=== PATIENT | male | born 1940 | race Two or more races ===

== ENCOUNTER 2018-06-05 08:50 | Observation (INO) | payer MEDICARE ==
[2018-06-05] MEDS ORDERED: ASPIRIN 81 MG PO STA (09:11)
--- NOTE | 2018-06-05 09:15 | ED ---
General Adult HPI - General Chief complaint: Arrhythmia/Palpitations Stated complaint: AFIB Time Seen by Provider: 06/05/18 08:51 Source: patient, RN notes reviewed Mode of arrival: EMS Limitations: no limitations - History of Present Illness Initial comments: Patient is a pleasant 77-year-old male presenting to the emergency department for concerns for dysrhythmia. Patient was sent over from [facility]. Case was discussed with Dr. Aden. Patient states he is symptom-free and has no complaints. Patient denies any palpitations. No chest pain. No dyspnea. No fatigue. Patient was scheduled for a routine colonoscopy. No history of previous dysrhythmia. - Related Data Home Medications Medication Instructions Recorded Confirmed Aspirin 81 mg PO DAILY 06/05/18 06/05/18 Lisinopril-Hctz 20-12.5 mg 1 tab PO BID 06/05/18 06/05/18 [Zestoretic 20-12.5] Simvastatin [Zocor] 20 mg PO HS 06/05/18 06/05/18 Tamsulosin HCl [Flomax] 0.4 mg PO HS 06/05/18 06/05/18 amLODIPine [Norvasc] 5 mg PO DAILY 06/05/18 06/05/18 metFORMIN HCL 1,000 mg PO DAILY 06/05/18 06/05/18 Allergies Allergy/AdvReac Type Severity Reaction Status Date / Time No Known Allergies Allergy Verified 06/05/18 09:44 Review of Systems ROS Statement: Those systems with pertinent positive or pertinent negative responses have been documented in the HPI. ROS Other: All systems not noted in ROS Statement are negative. Constitutional: Denies: fever Eyes: Denies: eye pain ENT: Denies: ear pain Respiratory: Denies: cough Cardiovascular: Denies: chest pain, palpitations Endocrine: Denies: fatigue Gastrointestinal: Denies: abdominal pain Genitourinary: Denies: dysuria Musculoskeletal: Denies: back pain Skin: Denies: rash Neurological: Denies: weakness Past Medical History Past Medical History: Diabetes Mellitus, Hyperlipidemia, Hypertension, Prostate Disorder History of Any Multi-Drug Resistant Organisms: None Reported Past Surgical History: No Surgical Hx Reported Past Psychological History: No Psychological Hx Reported Smoking Status: Current every day smoker Past Alcohol Use History: Occasional Past Drug Use History: None Reported General Exam Limitations: no limitations General appearance: alert, in no apparent distress Head exam: Present: atraumatic Eye exam: Present: normal appearance Neck exam: Present: normal inspection Respiratory exam: Present: normal lung sounds bilaterally. Absent: chest wall tenderness Cardiovascular Exam: Present: irregular rhythm, normal heart sounds Expanded Peripheral pulses: 2+: Radial (R), Radial (L), Posterior Tibialis (R), Posterior Tibialis (L) GI/Abdominal exam: Present: soft. Absent: tenderness Extremities exam: Present: normal inspection. Absent: pedal edema, calf tenderness Neurological exam: Present: alert Psychiatric exam: Present: normal affect, normal mood Skin exam: Present: normal color Course Vital Signs 06/05/18 06/05/18 06/05/18 08:54 09:10 09:30 Temperature 98.2 F Pulse Rate 83 80 67 Respiratory 18 18 17 Rate Blood Pressure 169/104 169/104 134/92 O2 Sat by Pulse 94 L 94 L 96 Oximetry 06/05/18 09:40 Temperature Pulse Rate 82 Respiratory 19 Rate Blood Pressure 151/120 O2 Sat by Pulse 96 Oximetry EKG Findings - EKG Comments: EKG Findings:: A. fib with frequent PVCs. QRS 116. QT 410. QTc 490. Left axis. Poor R-wave progression. No acute ST change. Medical Decision Making - Medical Decision Making Patient reevaluated and resting comfortably in bed. Patient remains in atrial fibrillation. Case was discussed in detail with Dr. Marion, who will admit covering for Dr. Abdi. She does request echo and cardiology consult and metoprolol and Xarelto. - Lab Data Result diagrams: 06/05/18 09:08 06/05/18 09:08 Lab Results 06/05/18 06/05/18 06/05/18 Range/Units 09:08 09:08 09:08 WBC 10.8 H (3.8-10.6) k/uL RBC 5.97 H (4.30-5.90) m/uL Hgb 17.3 (13.0-17.5) gm/dL Hct 51.6 (39.0-53.0) % MCV 86.4 (80.0-100.0) fL MCH 29.1 (25.0-35.0) pg MCHC 33.6 (31.0-37.0) g/dL RDW 13.5 (11.5-15.5) % Plt Count 177 (150-450) k/uL Neutrophils % 82 % Lymphocytes % 10 % Monocytes % 6 % Eosinophils % 1 % Basophils % 1 % Neutrophils # 8.9 H (1.3-7.7) k/uL Lymphocytes # 1.1 (1.0-4.8) k/uL Monocytes # 0.6 (0-1.0) k/uL Eosinophils # 0.1 (0-0.7) k/uL Basophils # 0.1 (0-0.2) k/uL PT (9.0-12.0) sec INR (<1.2) APTT (22.0-30.0) sec Sodium 138 (137-145) mmol/L Potassium 3.9 (3.5-5.1) mmol/L Chloride 105 (98-107) mmol/L Carbon Dioxide 23 (22-30) mmol/L Anion Gap 10 mmol/L BUN 20 (9-20) mg/dL Creatinine 1.01 (0.66-1.25) mg/dL Est GFR (CKD-EPI)AfAm 84 (>60 ml/min/1.73 sqM) Est GFR (CKD-EPI)NonAf 73 (>60 ml/min/1.73 sqM) Glucose 133 H (74-99) mg/dL Calcium 9.1 (8.4-10.2) mg/dL Magnesium 2.1 (1.6-2.3) mg/dL Total Bilirubin 0.9 (0.2-1.3) mg/dL AST 22 (17-59) U/L ALT 33 (21-72) U/L Alkaline Phosphatase 79 (38-126) U/L Total Creatine Kinase 76 (55-170) U/L CK-MB (CK-2) 3.6 H (0.0-2.4) ng/mL CK-MB (CK-2) Rel Index 4.7 Troponin I <0.012 (0.000-0.034) ng/mL Total Protein 6.8 (6.3-8.2) g/dL Albumin 4.1 (3.5-5.0) g/dL TSH 3.850 (0.465-4.680) mIU/L Free T4 1.04 (0.78-2.19) ng/dL Free T3 pg/mL 4.2 (2.8-5.3) pg/ml 06/05/18 Range/Units 09:08 WBC (3.8-10.6) k/uL RBC (4.30-5.90) m/uL Hgb (13.0-17.5) gm/dL Hct (39.0-53.0) % MCV (80.0-100.0) fL MCH (25.0-35.0) pg MCHC (31.0-37.0) g/dL RDW (11.5-15.5) % Plt Count (150-450) k/uL Neutrophils % % Lymphocytes % % Monocytes % % Eosinophils % % Basophils % % Neutrophils # (1.3-7.7) k/uL Lymphocytes # (1.0-4.8) k/uL Monocytes # (0-1.0) k/uL Eosinophils # (0-0.7) k/uL Basophils # (0-0.2) k/uL PT 11.1 (9.0-12.0) sec INR 1.0 (<1.2) APTT 22.6 (22.0-30.0) sec Sodium (137-145) mmol/L Potassium (3.5-5.1) mmol/L Chloride (98-107) mmol/L Carbon Dioxide (22-30) mmol/L Anion Gap mmol/L BUN (9-20) mg/dL Creatinine (0.66-1.25) mg/dL Est GFR (CKD-EPI)AfAm (>60 ml/min/1.73 sqM) Est GFR (CKD-EPI)NonAf (>60 ml/min/1.73 sqM) Glucose (74-99) mg/dL Calcium (8.4-10.2) mg/dL Magnesium (1.6-2.3) mg/dL Total Bilirubin (0.2-1.3) mg/dL AST (17-59) U/L ALT (21-72) U/L Alkaline Phosphatase (38-126) U/L Total Creatine Kinase (55-170) U/L CK-MB (CK-2) (0.0-2.4) ng/mL CK-MB (CK-2) Rel Index Troponin I (0.000-0.034) ng/mL Total Protein (6.3-8.2) g/dL Albumin (3.5-5.0) g/dL TSH (0.465-4.680) mIU/L Free T4 (0.78-2.19) ng/dL Free T3 pg/mL (2.8-5.3) pg/ml - Radiology Data Radiology results: image reviewed (Chest x-ray questions infiltrate, early versus atelectasis.) Disposition Clinical Impression: Atrial fibrillation Disposition: ADMITTED IP TO THIS HOSP Is patient prescribed a controlled substance at d/c from ED?: No Referrals: Bryce Abdi DO [Primary Care Provider] - 1-2 days Decision Time: 10:34
--- NOTE | 2018-06-05 09:37 | XR ---
EXAMINATION TYPE: XR chest 2V DATE OF EXAM: 06/05/2018 COMPARISON: None HISTORY: 77-year-old male with dysrhythmia TECHNIQUE: PA and lateral views FINDINGS: Heart normal size. Aorta and pulmonary vasculature within normal limits. Mild interstitial prominence appears largely chronic. However, there is patchy posterior basilar opacity on the lateral view. IMPRESSION: Patchy posterior basilar opacity on the lateral view could represent atelectasis or developing infilt rate.
[2018-06-05 09:39] LABS: Basophils # (A) 0.1 k/uL (0-0.2); Basophils % (A) 1 %; Eosinophils # (A) 0.1 k/uL (0-0.7); Eosinophils % (A) 1 %; HCT 51.6 % (39.0-53.0); HGB 17.3 gm/dL (13.0-17.5); Lymphocytes # (A) 1.1 k/uL (1.0-4.8); Lymphocytes % (A) 10 %; MCH 29.1 pg (25.0-35.0); MCHC 33.6 g/dL (31.0-37.0); MCV 86.4 fL (80.0-100.0); Mean Platelet Volume 6.9; Monocytes # (A) 0.6 k/uL (0-1.0); Monocytes % (A) 6 %; Neutrophils # (A) 8.9 k/uL (1.3-7.7); Neutrophils % (A) 82 %; Platelet Count 177 k/uL (150-450); RBC 5.97 m/uL (4.30-5.90); RDW 13.5 % (11.5-15.5); WBC 10.8 k/uL (3.8-10.6)
[2018-06-05 09:50] LABS: Albumin 4.1 g/dL (3.5-5.0); Calcium 9.1 mg/dL (8.4-10.2); Magnesium 2.1 mg/dL (1.6-2.3); Partial Thromboplastin Time 22.6 sec (22.0-30.0); Potassium 3.9 mmol/L (3.5-5.1); Prothrombin Time 11.1 sec (9.0-12.0); Total Bilirubin 0.9 mg/dL (0.2-1.3); Total Protein 6.8 g/dL (6.3-8.2)
[2018-06-05 09:58] LABS: Creatine Kinase 76 U/L (55-170)
[2018-06-05 10:07] LABS: T4, Free (Free Thyroxine) 1.04 ng/dL (0.78-2.19)
[2018-06-05 10:11] LABS: Creatine Kinase MB 3.6 ng/mL (0.0-2.4); Troponin I <0.012 ng/mL (0.000-0.034)
[2018-06-05] MEDS ORDERED: METOPROLOL TARTRATE 12.5 MG TAB PO SCH (10:45)
[2018-06-05 11:04] VITALS: RESP 18
[2018-06-05 11:20] VITALS: BMI 36.1
[2018-06-05] MEDS: LISINOPRIL-HCTZ 20-12.5 MG 1 EACH TAB PO SCH ×2 (11:22→20:33)
[2018-06-05] MEDS: RIVAROXABAN 20 MG TAB PO SCH (11:22)
[2018-06-05] MEDS ORDERED: INFLUENZA VACCINE (6 MOS+) 60 MCG/0.5 ML SYRINGE IM ONE (11:22)
[2018-06-05] MEDS ORDERED: PNEUMOCOCCAL VACC-PNEUMOVAX 23 25 MCG/0.5 ML VIAL IM ONE (11:22)
--- NOTE | 2018-06-05 11:54 | P.CRDCN ---
History of Present Illness Consult date: 06/05/18 Requesting physician: Salome Marion Consult reason: atrial fibrillation Chief complaint: Arrhythmia History of present illness: This is a pleasant 77-year-old gentleman with history of diabetes, hypertension, hyperlipidemia, nicotine dependence, weekend drinker, he states he drinks up to 15 or 16 alcoholic beverages on the weekends. He was scheduled today to undergo routine colonoscopy, which she states is the first colonoscopies had performed. They hooked him up to the monitor prior to doing the procedure, noticed the patient to be in an irregular heart rhythm with frequent PVCs, therefore the procedure was deferred and patient was recommended to come in for admission. His initial EKG showed atrial fibrillation with frequent PVCs. Chest x-ray showed patchy posterior basilar obesity on the lateral view which could represent atelectasis or developing infiltrate. Blood pressure 148/80 heart rate in the 70s, 96% on room air, afebrile. White blood cell count 10.8, hemoglobin 17.3, platelet count 177. Sodium 138, potassium 3.9 , BUN 20 and creatinine 1.0. Troponin 0.012, TSH 3.8. Patient denies any prior history of atrial fibrillation, he denies any palpitations, no dizziness no lightheadedness, no shortness of breath or chest discomfort. Past Medical History Past Medical History: Diabetes Mellitus, Eye Disorder, Hyperlipidemia, Hypertension, Prostate Disorder Additional Past Medical History / Comment(s): NIDDM type II, BPH, starting of cataracts. History of Any Multi-Drug Resistant Organisms: None Reported Past Surgical History: No Surgical Hx Reported Additional Past Anesthesia/Blood Transfusion Reaction / Comment(s): Pt has never had surgery. Smoking Status: Current every day smoker - Past Family History Father Family Medical History: No Reported History Additional Family Medical History / Comment(s): Father was healthy and lived to be 97yrs old. Mother Additional Family Medical History / Comment(s): Mother had a pacemaker. She lived to be 86yrs old. Medications and Allergies Home Medications Medication Instructions Recorded Confirmed Type Aspirin 81 mg PO DAILY 06/05/18 06/05/18 History Lisinopril-Hctz 20-12.5 mg 1 tab PO BID 06/05/18 06/05/18 History [Zestoretic 20-12.5] Simvastatin [Zocor] 20 mg PO HS 06/05/18 06/05/18 History Tamsulosin HCl [Flomax] 0.4 mg PO HS 06/05/18 06/05/18 History amLODIPine [Norvasc] 5 mg PO DAILY 06/05/18 06/05/18 History metFORMIN HCL 1,000 mg PO DAILY 06/05/18 06/05/18 History Allergies Allergy/AdvReac Type Severity Reaction Status Date / Time No Known Allergies Allergy Verified 06/05/18 09:44 Physical Exam Vitals: Vital Signs Temp Pulse Resp BP Pulse Ox 06/05/18 11:25 70 18 148/88 96 06/05/18 11:24 70 18 148/88 06/05/18 10:59 98 F 75 18 138/104 96 06/05/18 09:40 82 19 151/120 96 06/05/18 09:30 67 17 134/92 96 06/05/18 09:10 80 18 169/104 94 L 06/05/18 08:54 98.2 F 83 18 169/104 94 L Intake and Output 06/04/18 06/05/18 06/05/18 22:59 06:59 14:59 Other: Weight 104.825 kg PHYSICAL EXAMINATION: GENERAL: 77 year gentleman in no acute distress at the time of my examination HEENT: Head is atraumatic, normocephalic. Pupils equal, round. Sclera anicteric. Conjunctiva are clear. Mucous membranes of the mouth are moist. Neck is supple. There is no elevated jugular venous pressure. No carotid bruit is heard. HEART EXAMINATION: Heart S1 and S2 irregularly irregular CHEST EXAMINATION: Lungs are clear with fine wheezing heard . No chest wall tenderness is noted on palpation or with deep breathing. ABDOMEN: Soft, nontender. Bowel sounds are heard. No organomegaly noted. EXTREMITIES: 2+ peripheral pulses with no evidence of peripheral edema and no calf tenderness noted. NEUROLOGIC patient is awake, alert and oriented 3 . . Results 06/05/18 09:08 06/05/18 09:08 Cardiac Enzymes 06/05/18 06/05/18 Range/Units 09:08 09:08 AST 22 (17-59) U/L CK-MB (CK-2) 3.6 H (0.0-2.4) ng/mL Troponin I <0.012 (0.000-0.034) ng/mL Coagulation 06/05/18 Range/Units 09:08 PT 11.1 (9.0-12.0) sec APTT 22.6 (22.0-30.0) sec CBC 06/05/18 Range/Units 09:08 WBC 10.8 H (3.8-10.6) k/uL RBC 5.97 H (4.30-5.90) m/uL Hgb 17.3 (13.0-17.5) gm/dL Hct 51.6 (39.0-53.0) % Plt Count 177 (150-450) k/uL Comprehensive Metabolic Panel 06/05/18 Range/Units 09:08 Sodium 138 (137-145) mmol/L Potassium 3.9 (3.5-5.1) mmol/L Chloride 105 (98-107) mmol/L Carbon Dioxide 23 (22-30) mmol/L BUN 20 (9-20) mg/dL Creatinine 1.01 (0.66-1.25) mg/dL Glucose 133 H (74-99) mg/dL Calcium 9.1 (8.4-10.2) mg/dL AST 22 (17-59) U/L ALT 33 (21-72) U/L Alkaline Phosphatase 79 (38-126) U/L Total Protein 6.8 (6.3-8.2) g/dL Albumin 4.1 (3.5-5.0) g/dL Current Medications Generic Name Dose Route Start Last Admin Trade Name Freq PRN Reason Stop Dose Admin Aspirin 325 mg 06/06/18 09:00 Aspirin PO DAILY [facility] Atorvastatin Calcium 10 mg 06/05/18 21:00 Lipitor PO HS [facility] Lisinopril/HCTZ 1 each 06/05/18 10:45 06/05/18 11:22 Zestoretic 20-12.5 PO 1 each BID [facility] Administration Metformin HCl 1,000 mg 06/06/18 07:30 Glucophage PO W/BRKFST [facility] Metoprolol Tartrate 12.5 mg 06/05/18 10:45 06/05/18 11:22 Lopressor PO 12.5 mg BID [facility] Administration Rivaroxaban 20 mg 06/05/18 10:45 06/05/18 11:22 Xarelto PO 20 mg DAILY [facility] Administration Sodium Chloride 10 ml 06/05/18 21:00 Saline Flush IV BID [facility] Tamsulosin HCl 0.4 mg 06/05/18 21:00 Flomax PO HS [facility] Intake and Output 06/04/18 06/05/18 06/05/18 22:59 06:59 14:59 Other: Weight 104.825 kg Patient Weight 06/06/18 06:59 Weight 104.825 kg 06/05/18 09:08 06/05/18 09:08 EKG Interpretations (text) EKG shows atrial fibrillation with controlled ventricular response, frequent PVCs. Assessment and Plan Plan: Assessment and plan #1 atrial fibrillation, appears to be of new onset for the patient. Rate under control. Frequent PVCs. Patient initiated on Xarelto in the emergency room, he is currently on 12-1/2 of metoprolol twice a day. #2 hypertension #3 diabetes #4 hyperlipidemia #5 nicotine dependence #6 weekend EtOH use Plan We will obtain an echocardiogram with Doppler study. TSH level has come back to be normal. Magnesium and potassium levels also normal. Patient has been started on anticoagulation in the form of Xarelto 20 mg daily. I did explain to the patient the need for anticoagulation for stroke prevention. Lopressor 12 -1/2 mg by mouth twice a day has also been added to the patient's medication regime. I also discussed with the patient the importance regarding nicotine and EtOH cessation. Further recommendations to follow. DNP note has been reviewed, I agree with a documented findings and plan of care. Patient was seen and examined.
[2018-06-05 12:28] LABS: Glucose,Whole Blood 145 mg/dL (75-99)
--- NOTE | 2018-06-05 12:48 | ECHOF ---
Referral Reason:New-onset A. fib MEASUREMENTS -------- HEIGHT: 170.2 cm WEIGHT: 104.8 kg BP: 151/120 RVIDd: 3.6 cm (< 3.3) IVSd: 1.2 cm (0.6 - 1.1) LVIDd: 5.1 cm (3.9 - 5.3) LVPWd: 1.3 cm (0.6 - 1.1) IVSs: 1.9 cm LVIDs: 3.6 cm LVPWs: 1.8 cm LA Diam: 3.7 cm (2.7 - 3.8) LAESV Index (A-L): 30.18 ml/m Ao Diam: 3.5 cm (2.0 - 3.7) AV Cusp: 1.9 cm (1.5 - 2.6) MV EXCURSION: 22.213 mm (> 18.000) MV EF SLOPE: 145 mm/s (70 - 150) EPSS: 1.2 cm RAP: 5.00 mmHg RVSP: 20.05 mmHg FINDINGS -------- Atrial fibrillation. This was a technically good study. The left ventricular size is normal. There is mild concentric left ventricular hypertrophy. Overa ll left ventricular systolic function is mild-moderately impaired with, an EF between 40 - 45 %. The right ventricle is normal in size. LA is midly dilated 29-33ml/m2. The right atrium is normal in size. There is mild aortic valve sclerosis. The mitral valve leaflets are mildly thickened. Mild mitral annular calcification present. Mild m itral regurgitation is present. Mild tricuspid regurgitation present. Right ventricular systolic pressure is normal at < 35 mmHg. The pulmonic valve was not well visualized. The aortic root size is normal. Normal inferior vena cava with normal inspiratory collapse consistent with estimated right atrial pre ssure of 5 mmHg. There is no pericardial effusion. CONCLUSIONS -------- 1. Atrial fibrillation. 2. This was a technically good study. 3. The left ventricular size is normal. 4. There is mild concentric left ventricular hypertrophy. 5. Overall left ventricular systolic function is mild-moderately impaired with, an EF between 40 - 45 %. 6. The right ventricle is normal in size. 7. LA is midly dilated 29-33ml/m2. 8. The right atrium is normal in size. 9. There is mild aortic valve sclerosis. 10. The mitral valve leaflets are mildly thickened. 11. Mild mitral annular calcification present. 12. Mild mitral regurgitation is present. 13. Mild tricuspid regurgitation present. 14. Right ventricular systolic pressure is normal at < 35 mmHg. 15. The pulmonic valve was not well visualized. 16. The aortic root size is normal. 17. Normal inferior vena cava with normal inspiratory collapse consistent with estimated right atrial pressure of 5 mmHg. 18. There is no pericardial effusion. TOMOGRAPHY TECHNOLOGIST: Roxana Lundberg RDCS
[2018-06-05] MEDS: amLODIPine 5 MG TAB PO SCH (14:00)
--- NOTE | 2018-06-05 14:47 | P.HPIM ---
History of Present Illness H&P Date: 06/05/18 This is a 77-year-old male patient of Dr. Abdi with past medical history of diabetes mellitus type 2, hypertension, hyperlipidemia, benign prostatic hypertrophy, nicotine dependence, weekend drinker, he states he drinks up to 15 or 16 alcoholic beverages on the weekends. Patient was scheduled for routine colonoscopy at [facility] with Dr. Hernandez. He states he underwent the prep the day before and did not have any problems. He presented this morning for procedure and was found to be in irregular heart rhythm with frequent PVCs and his blood pressure was elevated. He was then transported by EMS to [facility] emergency center for further evaluation. His initial EKG showed atrial fibrillation with frequent PVCs. Chest x-ray showed patchy posterior basilar obesity on the lateral view which could represent atelectasis or developing infiltrate. Blood pressure 148/80 heart rate in the 70s, 96% on room air, afebrile. White blood cell count 10.8, hemoglobin 17.3, platelet count 177. Sodium 138, potassium 3.9, BUN 20 and creatinine 1.0. Troponin 0.012, TSH 3.8. Patient denies any prior history of atrial fibrillation, he denies any palpitations, no dizziness no lightheadedness , no shortness of breath or chest discomfort. He denies syncope or lightheadedness. Patient was admitted to the cardiac stepdown unit and seen by cardiology. They have started him on Xarelto, Lopressor. Review of Systems All systems: negative Constitutional: Denies chills, Denies fatigue, Denies fever, Denies poor appetite, Denies weakness Eyes: denies blurred vision, denies pain Ears, nose, mouth and throat: Denies dysphagia, Denies headache, Denies sore throat, Denies vertigo Cardiovascular: Reports high blood pressure, Denies chest pain, Denies dyspnea on exertion, Denies edema, Denies lightheadedness, Denies palpitations, Denies shortness of breath, Denies syncope Respiratory: Denies cough, Denies dyspnea, Denies excessive sputum, Denies hemoptysis, Denies home oxygen, Denies wheezing Gastrointestinal: Denies abdominal pain, Denies diarrhea, Denies loss of appetite, Denies melena, Denies nausea, Denies vomiting Musculoskeletal: Denies frequent falls, Denies gait dysfunction, Denies muscle weakness, Denies myalgias Integumentary: Denies pruritus, Denies rash, Denies wounds Neurological: Denies aphasia, Denies change in mentation, Denies confusion, Denies convulsions, Denies headaches, Denies numbness, Denies seizures, Denies weakness Psychiatric: Denies anxiety, Denies depression Endocrine: Denies fatigue, Denies weight change Past Medical History Past Medical History: Diabetes Mellitus, Eye Disorder, Hyperlipidemia, Hypertension, Prostate Disorder Additional Past Medical History / Comment(s): NIDDM type II, BPH, starting of cataracts. History of Any Multi-Drug Resistant Organisms: None Reported Past Surgical History: No Surgical Hx Reported Additional Past Anesthesia/Blood Transfusion Reaction / Comment(s): Pt has never had surgery. Smoking Status: Current every day smoker Additional Past Alcohol Use History / Comment(s): Patient is a smoker of a third of a pack per day since he was 22 years of age. He denies any marijuana or street drug use. On weekends, he drinks 15 or 16 beverages. - Past Family History Father Family Medical History: No Reported History Additional Family Medical History / Comment(s): Father was healthy and lived to be 97yrs old. Mother Additional Family Medical History / Comment(s): Mother had a pacemaker. She lived to be 86yrs old. Brother(s) Additional Family Medical History / Comment(s): Patient has 1 brother that at age 76 from brain cancer. Sister(s) Additional Family Medical History / Comment(s): Patient has 2 sisters. One at age 81 from heart failure. One sister in her 80s and resides at [facility] for dementia. Patient has one son with no major medical problems Medications and Allergies Home Medications Medication Instructions Recorded Confirmed Type Aspirin 81 mg PO DAILY 06/05/18 06/05/18 History Lisinopril-Hctz 20-12.5 mg 1 tab PO BID 06/05/18 06/05/18 History [Zestoretic 20-12.5] Simvastatin [Zocor] 20 mg PO HS 06/05/18 06/05/18 History Tamsulosin HCl [Flomax] 0.4 mg PO HS 06/05/18 06/05/18 History amLODIPine [Norvasc] 5 mg PO DAILY 06/05/18 06/05/18 History metFORMIN HCL 1,000 mg PO DAILY 06/05/18 06/05/18 History Allergies Allergy/AdvReac Type Severity Reaction Status Date / Time No Known Allergies Allergy Verified 06/05/18 09:44 Physical Exam Vitals: Vital Signs Temp Pulse Resp BP Pulse Ox 06/05/18 11:25 70 18 148/88 96 06/05/18 11:24 70 18 148/88 06/05/18 10:59 98 F 75 18 138/104 96 06/05/18 09:40 82 19 151/120 96 06/05/18 09:30 67 17 134/92 96 06/05/18 09:10 80 18 169/104 94 L 06/05/18 08:54 98.2 F 83 18 169/104 94 L Intake and Output 06/04/18 06/05/18 06/05/18 22:59 06:59 14:59 Other: Weight 97.4 kg Gen: This is a 77-year-old male. He is resting in bed and appears to be comfortable and in no acute distress. HEENT: Head is atraumatic, normocephalic. Pupils equal, round. Sclerae is anicteric. NECK: Supple. No JVD. No lymphadenopathy. No thyromegaly. LUNGS: Clear to auscultation. No wheezes or rhonchi. No intercostal retractions. HEART: Irregularly irregular. No murmur. ABDOMEN: Soft. Bowel sounds are present. No masses. No tenderness. EXTREMITIES: No pedal edema. No calf tenderness. Dorsalis pedis +2 bilaterally. NEUROLOGICAL: Patient is awake, alert and oriented x3. Cranial nerves 2 through 12 are grossly intact. Results CBC & Chem 7: 06/05/18 09:08 06/05/18 09:08 Labs: Abnormal Lab Results - Last 24 Hours (Table) 06/05/18 06/05/18 06/05/18 Range/Units 09:08 09:08 09:08 WBC 10.8 H (3.8-10.6) k/uL RBC 5.97 H (4.30-5.90) m/uL Neutrophils # 8.9 H (1.3-7.7) k/uL Glucose 133 H (74-99) mg/dL POC Glucose (mg/dL) (75-99) mg/dL CK-MB (CK-2) 3.6 H (0.0-2.4) ng/mL 06/05/18 Range/Units 12:07 WBC (3.8-10.6) k/uL RBC (4.30-5.90) m/uL Neutrophils # (1.3-7.7) k/uL Glucose (74-99) mg/dL POC Glucose (mg/dL) 145 H (75-99) mg/dL CK-MB (CK-2) (0.0-2.4) ng/mL Thrombosis Risk Factor Assmnt - Choose All That Apply Any of the Below Risk Factors Present?: Yes Each Factor Represents 1 point: Obesity (BMI >25) Other Risk Factors: Yes Each Risk Factor Represents 3 Points: Age 75 years or older Other congenital or acquired thrombophilia - If yes, enter type in comment: No Thrombosis Risk Factor Assessment Total Risk Factor Score: 4 Thrombosis Risk Factor Assessment Level: Moderate Risk Assessment and Plan Plan: 1. New onset atrial fibrillation. Cardiology consult appreciated. Echocardiogram ordered. Patient started on Xarelto 20 mg daily and continue Lopressor 12.5 mg twice daily. Patient has been instructed regarding nicotine and alcohol cessation. Continue aspirin. 2. Hypertension. Continue Norvasc 5 mg daily, Zestoretic 1 twice daily. 3. Diabetes mellitus type 2. Continue metformin 1000 mg daily. 4. Benign prostatic hypertrophy. Continue Flomax or 0.5 mg daily. 5. Tobacco use and dependence. Patient declines need for nicotine patch. 6. Alcohol abuse. Discussed need for alcohol cessation. Patient will be admitted to the hospital for a minimum of 2 night stay. Discharge plan: Return home Impression and plan of care have been directed as dictated by the signing physician. Patty Hernadez nurse practitioner acting as scribe for signing physician.
[2018-06-05 15:29] LABS: Creatine Kinase 71 U/L (55-170)
[2018-06-05 15:43] LABS: Creatine Kinase MB 2.9 ng/mL (0.0-2.4); Troponin I <0.012 ng/mL (0.000-0.034)
[2018-06-05 17:02] LABS: Glucose,Whole Blood 103 mg/dL (75-99)
[2018-06-05] MEDS: ATORVASTATIN 40 MG TAB PO SCH (20:32)
[2018-06-05] MEDS: METOPROLOL TARTRATE 12.5 MG TAB PO SCH (20:33)
[2018-06-05] MEDS: TAMSULOSIN 0.4 MG CAP.ER.24H PO SCH (20:33)
[2018-06-05] MEDS ORDERED: METOPROLOL TARTRATE 25 MG TAB PO SCH (21:00)
[2018-06-05] MEDS ORDERED: ATORVASTATIN 10 MG TAB PO SCH (21:00)
[2018-06-05 21:11] LABS: Creatine Kinase 81 U/L (55-170)
[2018-06-05 21:24] LABS: Glucose,Whole Blood 133 mg/dL (75-99)
[2018-06-05 21:25] LABS: Creatine Kinase MB 3.1 ng/mL (0.0-2.4); Troponin I <0.012 ng/mL (0.000-0.034)
[2018-06-06 03:44] LABS: Cholesterol 159 mg/dL (<200); HDL Cholesterol 31 mg/dL (40-60); LDL Cholesterol,Calculated 95 mg/dL (0-99); Triglycerides 163 mg/dL (<150)
[2018-06-06 06:08] LABS: Glucose,Whole Blood 118 mg/dL (75-99)
[2018-06-06] MEDS ORDERED: metFORMIN 500 MG TAB PO SCH (07:30)
[2018-06-06] MEDS: amLODIPine 5 MG TAB PO SCH (08:08)
[2018-06-06] MEDS: LISINOPRIL-HCTZ 20-12.5 MG 1 EACH TAB PO SCH (08:08)
[2018-06-06] MEDS: RIVAROXABAN 20 MG TAB PO SCH (08:08)
[2018-06-06] MEDS ORDERED: ASPIRIN 81 MG PO SCH (09:00)
[2018-06-06] MEDS ORDERED: ASPIRIN 325 MG TAB PO SCH (09:00)
[2018-06-06 11:39] LABS: Glucose,Whole Blood 111 mg/dL (75-99)
[2018-06-06 11:42] VITALS: BP 131/86; PULSE 55; TEMP 96.3
--- NOTE | 2018-06-06 12:16 | P.PN ---
Subjective Progress Note Date: 06/06/18 This is a 77-year-old male patient of Dr. Abdi with past medical history of diabetes mellitus type 2, hypertension, hyperlipidemia, benign prostatic hypertrophy, nicotine dependence, weekend drinker, he states he drinks up to 15 or 16 alcoholic beverages on the weekends. Patient was scheduled for routine colonoscopy at [facility] with Dr. Hernandez. He states he underwent the prep the day before and did not have any problems. He presented this morning for procedure and was found to be in irregular heart rhythm with frequent PVCs and his blood pressure was elevated. He was then transported by EMS to [facility] emergency [place] for further evaluation. His initial EKG showed atrial fibrillation with frequent PVCs. Chest x-ray showed patchy posterior basilar obesity on the lateral view which could represent atelectasis or developing infiltrate. Blood pressure 148/80 heart rate in the 70s, 96% on room air, afebrile. White blood cell count 10.8, hemoglobin 17.3, platelet count 177. Sodium 138, potassium 3.9, BUN 20 and creatinine 1.0. Troponin 0.012, TSH 3.8. Patient denies any prior history of atrial fibrillation, he denies any palpitations, no dizziness no lightheadedness , no shortness of breath or chest discomfort. He denies syncope or lightheadedness. Patient was admitted to the cardiac stepdown unit and seen by cardiology. They have started him on Xarelto, Lopressor. 06/06: Patient denies any chest pain, shortness of breath, lightheadedness or dizziness. Patient did have low heart rate in the 40s with 2 second pauses during the night. Cardiology to evaluate. Lopressor has not been given. We' ll plan to monitor patient overnight. Heart rate is currently running 55-73, engine monitor is atrial fibrillation, pulse ox 95% on room air, afebrile, blood pressure 131/86. Echocardiogram reveals EF of 40-45% with mild concentric left ventricular hypertrophy, mild mitral regurgitation, mild tricuspid regurgitation. Review of Systems Constitutional: Denies chills, Denies fatigue, Denies fever, Denies poor appetite, Denies weakness Eyes: denies blurred vision, denies pain Ears, nose, mouth and throat: Denies dysphagia, Denies headache, Denies sore throat, Denies vertigo Cardiovascular: Reports high blood pressure, Denies chest pain, Denies dyspnea on exertion, Denies edema, Denies lightheadedness, Denies palpitations, Denies shortness of breath, Denies syncope Respiratory: Denies cough, Denies dyspnea, Denies excessive sputum, Denies hemoptysis, Denies home oxygen, Denies wheezing Gastrointestinal: Denies abdominal pain, Denies diarrhea, Denies loss of appetite, Denies melena, Denies nausea, Denies vomiting Musculoskeletal: Denies frequent falls, Denies gait dysfunction, Denies muscle weakness, Denies myalgias Integumentary: Denies pruritus, Denies rash, Denies wounds Neurological: Denies aphasia, Denies change in mentation, Denies confusion, Denies convulsions, Denies headaches, Denies numbness, Denies seizures, Denies weakness Psychiatric: Denies anxiety, Denies depression Endocrine: Denies fatigue, Denies weight change Objective - Vital Signs Vital signs: Vital Signs Temp 96.8 F L 06/06/18 08:00 Pulse 62 06/06/18 08:25 Resp 18 06/06/18 08:25 BP 135/93 06/06/18 08:00 Pulse Ox 94 L 06/06/18 08:00 Intake & Output 06/05/18 06/06/18 06/06/18 18:59 06:59 18:59 Intake Total 720 300 240 Balance 720 300 240 Weight 97.4 kg 97.6 kg Intake: Oral 720 300 240 Other: Voiding Method Toilet Toilet Toilet # Voids 3 1 # Bowel Movements 1 - Exam Gen: This is a 77-year-old male. He is resting in bed and appears to be comfortable. HEENT: Head is atraumatic, normocephalic. Pupils equal, round. Sclerae is anicteric. NECK: Supple. No JVD. No lymphadenopathy. No thyromegaly. LUNGS: Clear to auscultation. No wheezes or rhonchi. No intercostal retractions. HEART: Irregularly irregular. No murmur. ABDOMEN: Soft. Bowel sounds are present. No masses. No tenderness. EXTREMITIES: No pedal edema. No calf tenderness. Dorsalis pedis +2 bilaterally. NEUROLOGICAL: Patient is awake, alert and oriented x3. Cranial nerves 2 through 12 are grossly intact. - Labs CBC & Chem 7: 06/05/18 09:08 06/05/18 09:08 Labs: Abnormal Lab Results - Last 24 Hours (Table) 06/05/18 06/05/18 06/05/18 Range/Units 09:08 12:07 14:57 POC Glucose (mg/dL) 145 H (75-99) mg/dL CK-MB (CK-2) 2.9 H (0.0-2.4) ng/mL Triglycerides 163 H (<150) mg/dL HDL Cholesterol 31 L (40-60) mg/dL 06/05/18 06/05/18 06/05/18 Range/Units 16:59 20:36 21:10 POC Glucose (mg/dL) 103 H 133 H (75-99) mg/dL CK-MB (CK-2) 3.1 H (0.0-2.4) ng/mL Triglycerides (<150) mg/dL HDL Cholesterol (40-60) mg/dL 06/06/18 Range/Units 05:53 POC Glucose (mg/dL) 118 H (75-99) mg/dL CK-MB (CK-2) (0.0-2.4) ng/mL Triglycerides (<150) mg/dL HDL Cholesterol (40-60) mg/dL Assessment and Plan Plan: 1. New onset atrial fibrillation. Cardiology consult appreciated. Echocardiogram ordered. Patient started on Xarelto 20 mg daily. Lopressor is on hold for bradycardia. Patient has been instructed regarding nicotine and alcohol cessation. Continue aspirin. 2. Hypertension. Continue Norvasc 5 mg daily, Zestoretic 1 twice daily. 3. Diabetes mellitus type 2. Continue metformin 1000 mg daily. 4. Benign prostatic hypertrophy. Continue Flomax or 0.5 mg daily. 5. Tobacco use and dependence. Patient declines need for nicotine patch. 6. Alcohol abuse. Discussed need for alcohol cessation. Discharge plan: Return home Impression and plan of care have been directed as dictated by the signing physician. Patty Hernadez nurse practitioner acting as scribe for signing physician.
[2018-06-06] MEDS: METOPROLOL TARTRATE 12.5 MG TAB PO SCH (12:42)
--- NOTE | 2018-06-06 13:35 | P.DS ---
Providers Date of admission: 06/05/18 10:36 Expected date of discharge: 06/06/18 Attending physician: Salome Marion Consults: 06/05/18 10:35 Consult Physician Urgent Consulting Provider: Mo Sorensen Consult Reason/Comments: new onset a fib Do you want consulting provider notified?: Yes [facility] Course: This is a 77-year-old male patient of Dr. Abdi with past medical history of diabetes mellitus type 2, hypertension, hyperlipidemia, benign prostatic hypertrophy, nicotine dependence, weekend drinker, he states he drinks up to 15 or 16 alcoholic beverages on the weekends. Patient was scheduled for routine colonoscopy at [facility] with Dr. Hernandez. He states he underwent the prep the day before and did not have any problems. He presented this morning for procedure and was found to be in irregular heart rhythm with frequent PVCs and his blood pressure was elevated. He was then transported by EMS to [facility] emergency center for further evaluation. His initial EKG showed atrial fibrillation with frequent PVCs. Chest x-ray showed patchy posterior basilar obesity on the lateral view which could represent atelectasis or developing infiltrate. Blood pressure 148/80 heart rate in the 70s, 96% on room air, afebrile. White blood cell count 10.8, hemoglobin 17.3, platelet count 177. Sodium 138, potassium 3.9, BUN 20 and creatinine 1.0. Troponin 0.012, TSH 3.8. Patient denies any prior history of atrial fibrillation, he denies any palpitations, no dizziness no lightheadedness , no shortness of breath or chest discomfort. He denies syncope or lightheadedness. Patient was admitted to the cardiac stepdown unit and seen by cardiology. They have started him on Xarelto, Lopressor. 06/06: Patient denies any chest pain, shortness of breath, lightheadedness or dizziness. Patient did have low heart rate in the 40s with 2 second pauses during the night. Cardiology to evaluate. Lopressor has not been given. Heart rate is currently running 55-73, monitor tech is atrial fibrillation, pulse ox 95% on room air, afebrile, blood pressure 131/86. Echocardiogram reveals EF of 40-45% with mild concentric left ventricular hypertrophy, mild mitral regurgitation, mild tricuspid regurgitation. Subsequently, patient was cleared for discharge by cardiology with plan to discontinue Lopressor. Patient will be discharged home today in stable condition. Discharge diagnoses: 1. New onset atrial fibrillation, most likely chronic A. fib. 2. Hypertension. 3. Diabetes mellitus type 2. 4. Benign prostatic hypertrophy. 5. Tobacco use and dependence. 6. Alcohol abuse. Discharge plan: Return home Impression and plan of care have been directed as dictated by the signing physician. Patty Hernadez nurse practitioner acting as scribe for signing physician. Patient Condition at Discharge: Good Plan - Discharge Summary Discharge Rx Participant: No New Discharge Prescriptions: New Rivaroxaban [Xarelto] 20 mg PO DAILY #30 tab Continue metFORMIN HCL 1,000 mg PO DAILY amLODIPine [Norvasc] 5 mg PO DAILY Simvastatin [Zocor] 20 mg PO HS Lisinopril-Hctz 20-12.5 mg [Zestoretic 20-12.5] 1 tab PO BID Tamsulosin HCl [Flomax] 0.4 mg PO HS Discontinued Aspirin 81 mg PO DAILY Discharge Medication List Lisinopril-Hctz 20-12.5 mg [Zestoretic 20-12.5] 1 tab PO BID 06/05/18 [History] Simvastatin [Zocor] 20 mg PO HS 06/05/18 [History] Tamsulosin HCl [Flomax] 0.4 mg PO HS 06/05/18 [History] amLODIPine [Norvasc] 5 mg PO DAILY 06/05/18 [History] metFORMIN HCL 1,000 mg PO DAILY 06/05/18 [History] Rivaroxaban [Xarelto] 20 mg PO DAILY #30 tab 06/06/18 [Rx] Follow up Appointment(s)/Referral(s): Emely Pace MD [STAFF PHYSICIAN] - 06/13/18 3:30 pm (Surveillance Supervisor.) Bryce Abdi DO [Primary Care Provider] - 06/13/18 8:15 am Patient Instructions/Handouts: A-fib (Atrial Fibrillation) (DC), How to Stop Smoking (DC), At-Risk Alcohol Use (DC), Safe Use of Anticoagulants (DC) Activity/Diet/Wound Care/Special Instructions: pts 30 day copay for Xarelto is $40 Discharge Disposition: HOME SELF-CARE
[2018-06-06] MEDS: TAMSULOSIN 0.4 MG CAP.ER.24H PO SCH (14:03)
[2018-06-06] MEDS: ATORVASTATIN 40 MG TAB PO SCH (14:03)
--- NOTE | 2018-06-06 15:36 | P.PN ---
Subjective Progress Note Date: 06/06/18 This is a pleasant 77-year-old gentleman with history of diabetes, hypertension, hyperlipidemia, nicotine dependence, weekend drinker, he states he drinks up to 15 or 16 alcoholic beverages on the weekends. He was scheduled today to undergo routine colonoscopy, which she states is the first colonoscopies had performed. They hooked him up to the monitor prior to doing the procedure, noticed the patient to be in an irregular heart rhythm with frequent PVCs, therefore the procedure was deferred and patient was recommended to come in for admission. His initial EKG showed atrial fibrillation with frequent PVCs. Chest x-ray showed patchy posterior basilar obesity on the lateral view which could represent atelectasis or developing infiltrate. Blood pressure 148/80 heart rate in the 70s, 96% on room air, afebrile. White blood cell count 10.8, hemoglobin 17.3, platelet count 177. Sodium 138, potassium 3.9 , BUN 20 and creatinine 1.0. Troponin 0.012, TSH 3.8. Patient denies any prior history of atrial fibrillation, he denies any palpitations, no dizziness no lightheadedness, no shortness of breath or chest discomfort. 06/06/2018 Patient seen and examined this morning, continues to be in atrial fibrillation, heart rate mainly in the 40s. He was noted on the monitor also to have a positive. He has been initiated on anticoagulation, echo cardiac gram with Doppler study was performed which revealed an ejection fraction of 40-45%. At this time we'll discontinue the beta fabrizio, he may be able to be discharged home today to follow-up with Dr. Pace in the office. Objective - Vital Signs Vital signs: Vital Signs Temp 96.3 F L 06/06/18 11:37 Pulse 55 L 06/06/18 11:37 Resp 18 06/06/18 12:00 BP 131/86 06/06/18 11:37 Pulse Ox 95 06/06/18 11:37 Intake & Output 06/05/18 06/06/18 06/06/18 18:59 06:59 18:59 Intake Total 720 300 600 Balance 720 300 600 Weight 97.4 kg 97.6 kg Intake: Oral 720 300 600 Other: Voiding Method Toilet Toilet Toilet # Voids 3 1 1 # Bowel Movements 1 - Exam PHYSICAL EXAMINATION: GENERAL: 77 year gentleman in no acute distress at the time of my examination HEENT: Head is atraumatic, normocephalic. Pupils equal, round. Sclera anicteric. Conjunctiva are clear. Mucous membranes of the mouth are moist. Neck is supple. There is no elevated jugular venous pressure. No carotid bruit is heard. HEART EXAMINATION: Heart S1 and S2 irregularly irregular CHEST EXAMINATION: Lungs are clear with fine wheezing heard . No chest wall tenderness is noted on palpation or with deep breathing. ABDOMEN: Soft, nontender. Bowel sounds are heard. No organomegaly noted. EXTREMITIES: 2+ peripheral pulses with no evidence of peripheral edema and no calf tenderness noted. NEUROLOGIC patient is awake, alert and oriented 3 . . - Labs CBC & Chem 7: 06/05/18 09:08 06/05/18 09:08 Labs: Abnormal Lab Results - Last 24 Hours (Table) 06/05/18 06/05/18 06/05/18 Range/Units 09:08 14:57 16:59 POC Glucose (mg/dL) 103 H (75-99) mg/dL CK-MB (CK-2) 2.9 H (0.0-2.4) ng/mL Triglycerides 163 H (<150) mg/dL HDL Cholesterol 31 L (40-60) mg/dL 06/05/18 06/05/18 06/06/18 Range/Units 20:36 21:10 05:53 POC Glucose (mg/dL) 133 H 118 H (75-99) mg/dL CK-MB (CK-2) 3.1 H (0.0-2.4) ng/mL Triglycerides (<150) mg/dL HDL Cholesterol (40-60) mg/dL 06/06/18 Range/Units 11:37 POC Glucose (mg/dL) 111 H (75-99) mg/dL CK-MB (CK-2) (0.0-2.4) ng/mL Triglycerides (<150) mg/dL HDL Cholesterol (40-60) mg/dL Assessment and Plan Plan: Assessment and plan #1 atrial fibrillation, appears to be of new onset for the patient. Rate under control. Frequent PVCs. Patient initiated on Xarelto in the emergency room, he is currently on 12-1/2 of metoprolol twice a day. #2 hypertension #3 diabetes #4 hyperlipidemia #5 nicotine dependence #6 weekend EtOH use Plan From cardiology's perspective, we'll discontinue the beta fabrizio, continue anticoagulation with xarelto. He may be able to be discharged home, we'll make him a follow-up appointment to see Dr. Pace in the office post discharge. DNP note has been reviewed, I agree with a documented findings and plan of care. Patient was seen and examined.
== END 2018-06-06 14:00 | disposition home or self-care (01) ==
LOC: EC 08:50 → 3SCARD 10:36
PROVIDERS: ADMIT Family Medicine; ATTEND Family Medicine
DX: I48.91 Unspecified atrial fibrillation (principal); I49.3 Ventricular premature depolarization; I11.9 Hypertensive heart disease without heart failure; E78.5 Hyperlipidemia, unspecified; I08.1 Rheumatic disorders of both mitral and tricuspid valves; E11.9 Type 2 diabetes mellitus without complications; N40.0 Benign prostatic hyperplasia without lower urinary tract symptoms; H26.9 Unspecified cataract; F17.210 Nicotine dependence, cigarettes, uncomplicated; F10.10 Alcohol abuse, uncomplicated; E66.9 Obesity, unspecified; Z68.33 Body mass index [BMI] 33.0-33.9, adult; Z79.84 Long term (current) use of oral hypoglycemic drugs; Z79.82 Long term (current) use of aspirin; Z79.899 Other long term (current) drug therapy; Z82.49 Family history of ischemic heart disease and other diseases of the circulatory system; Z80.8 Family history of malignant neoplasm of other organs or systems; Z81.8 Family history of other mental and behavioral disorders; Z23 Encounter for immunization
CPT/HCPCS: 99285; 36415; 93005; 93306; 84439; 84481; 80061; 80053; 82550; 82553; 83735; 84443; 84484; 85025; 85610; 85730; 71046; 90732; 90686; G0378 ×2; G0008; G0009

== ENCOUNTER 2018-07-09 11:57 | Emergency (ER) | payer MEDICARE ==
[2018-07-09 12:13] VITALS: BP 110/68; PULSE 82; RESP 16; TEMP 97.4
[2018-07-09] MEDS ORDERED: SODIUM CHLORIDE 0.9% 1,000 ML IV STA (12:39)
[2018-07-09 13:19] LABS: Basophils % (A) 0 %; Eosinophils # (A) 0.1 k/uL (0-0.7); Eosinophils % (A) 1 %; HCT 49.8 % (39.0-53.0); HGB 15.9 gm/dL (13.0-17.5); Lymphocytes # (A) 0.8 k/uL (1.0-4.8); Lymphocytes % (A) 9 %; MCH 28.4 pg (25.0-35.0); MCHC 31.9 g/dL (31.0-37.0); Mean Platelet Volume 7.4; Monocytes # (A) 0.5 k/uL (0-1.0); Monocytes % (A) 5 %; Neutrophils # (A) 7.9 k/uL (1.3-7.7); Neutrophils % (A) 84 %; Platelet Count 175 k/uL (150-450); RBC 5.59 m/uL (4.30-5.90); RDW 13.3 % (11.5-15.5); WBC 9.4 k/uL (3.8-10.6)
[2018-07-09 13:29] LABS: INR 1.3 (<1.2); Partial Thromboplastin Time 31.1 sec (22.0-30.0); Prothrombin Time 13.6 sec (9.0-12.0)
[2018-07-09 13:44] LABS: Albumin 3.7 g/dL (3.5-5.0); Calcium 8.7 mg/dL (8.4-10.2); Total Bilirubin 1.1 mg/dL (0.2-1.3); Total Protein 6.4 g/dL (6.3-8.2)
[2018-07-09 13:47] LABS: Potassium 4.1 mmol/L (3.5-5.1)
--- NOTE | 2018-07-09 13:54 | XR ---
EXAMINATION TYPE: XR chest 2V DATE OF EXAM: 07/09/2018 COMPARISON: 04/12/2019 HISTORY: 77-year-old male with syncope TECHNIQUE: PA and lateral views FINDINGS: Heart normal size. Aorta and pulmonary vasculature within normal limits. Some patchy bibasilar densit ies are present and have a somewhat strandy clearance. Density is more patchy and focal posteriorly o n the lateral view. Suspect summation density at the right midlung for which follow-up is recommended . IMPRESSION: 1. Patchy bibasilar atelectasis or infiltrate particularly posteriorly on the lateral view. 2. Suspect summation artifact at the right midlung. 4-6 week follow-up recommended to reassess.
--- NOTE | 2018-07-09 14:53 | ED ---
General Adult HPI - General Chief complaint: Syncope Stated complaint: near syncope Time Seen by Provider: 07/09/18 12:37 Source: patient, EMS Mode of arrival: EMS Limitations: no limitations - History of Present Illness Initial comments: This 77-year-old white male presents to the emergency department from the stress test lab after he apparently became dizzy. He states that he was having a chemical stress test. He was injected with the medication for the stress test when he then developed his symptoms. He states that he would get extremely dizzy if he sat up. He denies any syncopal episodes or presyncope. He denies any fevers or chills. There is no chest pain. Upon initial evaluation, he states that all symptoms have resolved. He does relate that he's had a slight upper respiratory infection this past week. He's had a minimal cough at times. No other complaints or modifying factors. - Related Data Home Medications Medication Instructions Recorded Confirmed Lisinopril-Hctz 20-12.5 mg 1 tab PO BID 06/05/18 07/09/18 [Zestoretic 20-12.5] Simvastatin [Zocor] 20 mg PO HS 06/05/18 07/09/18 Tamsulosin HCl [Flomax] 0.4 mg PO HS 06/05/18 07/09/18 amLODIPine [Norvasc] 5 mg PO DAILY 06/05/18 07/09/18 metFORMIN HCL 1,000 mg PO DAILY 06/05/18 07/09/18 Rivaroxaban [Xarelto] 20 mg PO HS 07/09/18 07/09/18 Previous Rx's Medication Instructions Recorded Azithromycin [Zithromax Z-pack] 0 mg PO DIRECTED #6 tab 07/09/18 Allergies Allergy/AdvReac Type Severity Reaction Status Date / Time No Known Allergies Allergy Verified 07/09/18 12:34 Review of Systems ROS Statement: Those systems with pertinent positive or pertinent negative responses have been documented in the HPI. ROS Other: All systems not noted in ROS Statement are negative. Past Medical History Past Medical History: Diabetes Mellitus, Eye Disorder, Hyperlipidemia, Hypertension, Prostate Disorder Additional Past Medical History / Comment(s): NIDDM type II, BPH, starting of cataracts. History of Any Multi-Drug Resistant Organisms: None Reported Past Surgical History: No Surgical Hx Reported Additional Past Anesthesia/Blood Transfusion Reaction / Comment(s): Pt has never had surgery. Past Psychological History: No Psychological Hx Reported Smoking Status: Current every day smoker Past Alcohol Use History: None Reported Past Drug Use History: None Reported - Past Family History Father Family Medical History: No Reported History Additional Family Medical History / Comment(s): Father was healthy and lived to be 97yrs old. Mother Additional Family Medical History / Comment(s): Mother had a pacemaker. She lived to be 86yrs old. Brother(s) Additional Family Medical History / Comment(s): Patient has 1 brother that at age 76 from brain cancer. Sister(s) Additional Family Medical History / Comment(s): Patient has 2 sisters. One at age 81 from heart failure. One sister in her 80s and resides at [facility] for dementia. Patient has one son with no major medical problems General Exam - General Exam Comments Initial Comments: GENERAL: The patient is well nourished and well hydrated. VITAL SIGNS: Heart rate, blood pressure, respiratory rate reviewed as recorded in nurse's notes. EYES: Pupils are round and reactive. Extraocular movements are intact. No conjunctival / lid redness or swelling. ENT: No external evidence of injury, swelling, or ecchymosis. Airway is patent. Throat is clear. NECK: Nontender. No swelling or evidence of injury. No subcutaneous emphysema. Trachea is midline. No thyroid mass. HEART: Regular rate and rhythm. Good peripheral pulses. LUNGS/CHEST: Breath sounds clear and equal bilaterally. No rales, rhonchi, or wheezes. No ecchymosis, subcutaneous emphysema, or tenderness. ABDOMEN: Abdomen soft without tenderness. No palpable masses or organomegaly. No peritoneal signs. No abdominal wall swelling or ecchymosis. EXTREMITIES: No extremity tenderness. Normal muscle tone and function. No thoracolumbar tenderness. NEUROLOGIC: Sensation is grossly intact. Cranial nerve exam reveals face is symmetrical, tongue is midline, speech is clear. SKIN: No abrasions or ecchymosis is noted. No induration or masses noted. PSYCHIATRIC: Alert and oriented. Appropriate behavior and judgment. Limitations: no limitations Course Vital Signs 07/09/18 12:08 Temperature 97.4 F L Pulse Rate 82 Respiratory 16 Rate Blood Pressure 110/68 O2 Sat by Pulse 94 L Oximetry Medical Decision Making - Medical Decision Making The patient was seen and examined. All diagnostics were reviewed. He had an EKG done which shows atrial fibrillation with a heart rate of 74. Multiple PVCs are noted. The QRS duration is 108 and QTC intervals 459. The patient also had a laboratory analysis which was unremarkable. On recheck, he relates that his symptoms are still completely resolved and he would like to go home. This felt as though this is reasonable. His x-ray did come back showing a possible summation artifact in the right side. I suspect the radiologist is concerned regarding a nodule and they recommend recheck in 6 weeks. This was discussed with patient and family. In addition they do note a possible infiltrate versus atelectasis posteriorly. This does seem fairly apparent upon my review of the x-rays well. Given light of his recent upper respiratory infection symptoms it is felt as though he may benefit from an antibiotic. He is agreeable to this plan. It is felt as though he may have had a medication reaction from the stress test and he should avoid this type of stress test in the future and he will follow-up with his expander machine operator to reschedule a different type of stress test. - Lab Data Result diagrams: 07/09/18 12:20 07/09/18 12:20 Lab Results 07/09/18 07/09/18 07/09/18 Range/Units 12:20 12:20 12:20 WBC 9.4 (3.8-10.6) k/uL RBC 5.59 (4.30-5.90) m/uL Hgb 15.9 (13.0-17.5) gm/dL Hct 49.8 (39.0-53.0) % MCV 89.0 (80.0-100.0) fL MCH 28.4 (25.0-35.0) pg MCHC 31.9 (31.0-37.0) g/dL RDW 13.3 (11.5-15.5) % Plt Count 175 (150-450) k/uL Neutrophils % 84 % Lymphocytes % 9 % Monocytes % 5 % Eosinophils % 1 % Basophils % 0 % Neutrophils # 7.9 H (1.3-7.7) k/uL Lymphocytes # 0.8 L (1.0-4.8) k/uL Monocytes # 0.5 (0-1.0) k/uL Eosinophils # 0.1 (0-0.7) k/uL Basophils # 0.0 (0-0.2) k/uL PT 13.6 H (9.0-12.0) sec INR 1.3 H (<1.2) APTT 31.1 H (22.0-30.0) sec Sodium 137 (137-145) mmol/L Potassium 4.1 (3.5-5.1) mmol/L Chloride 104 (98-107) mmol/L Carbon Dioxide 24 (22-30) mmol/L Anion Gap 9 mmol/L BUN 20 (9-20) mg/dL Creatinine 1.21 (0.66-1.25) mg/dL Est GFR (CKD-EPI)AfAm 68 (>60 ml/min/1.73 sqM) Est GFR (CKD-EPI)NonAf 58 (>60 ml/min/1.73 sqM) Glucose 156 H (74-99) mg/dL Calcium 8.7 (8.4-10.2) mg/dL Total Bilirubin 1.1 (0.2-1.3) mg/dL AST 21 (17-59) U/L ALT 20 L (21-72) U/L Alkaline Phosphatase 73 (38-126) U/L Troponin I (0.000-0.034) ng/mL Total Protein 6.4 (6.3-8.2) g/dL Albumin 3.7 (3.5-5.0) g/dL 07/09/18 Range/Units 12:20 WBC (3.8-10.6) k/uL RBC (4.30-5.90) m/uL Hgb (13.0-17.5) gm/dL Hct (39.0-53.0) % MCV (80.0-100.0) fL MCH (25.0-35.0) pg MCHC (31.0-37.0) g/dL RDW (11.5-15.5) % Plt Count (150-450) k/uL Neutrophils % % Lymphocytes % % Monocytes % % Eosinophils % % Basophils % % Neutrophils # (1.3-7.7) k/uL Lymphocytes # (1.0-4.8) k/uL Monocytes # (0-1.0) k/uL Eosinophils # (0-0.7) k/uL Basophils # (0-0.2) k/uL PT (9.0-12.0) sec INR (<1.2) APTT (22.0-30.0) sec Sodium (137-145) mmol/L Potassium (3.5-5.1) mmol/L Chloride (98-107) mmol/L Carbon Dioxide (22-30) mmol/L Anion Gap mmol/L BUN (9-20) mg/dL Creatinine (0.66-1.25) mg/dL Est GFR (CKD-EPI)AfAm (>60 ml/min/1.73 sqM) Est GFR (CKD-EPI)NonAf (>60 ml/min/1.73 sqM) Glucose (74-99) mg/dL Calcium (8.4-10.2) mg/dL Total Bilirubin (0.2-1.3) mg/dL AST (17-59) U/L ALT (21-72) U/L Alkaline Phosphatase (38-126) U/L Troponin I <0.012 (0.000-0.034) ng/mL Total Protein (6.3-8.2) g/dL Albumin (3.5-5.0) g/dL Disposition Clinical Impression: Medication reaction, Dizziness, Pneumonia, Lung nodule Disposition: HOME SELF-CARE Condition: Good Prescriptions: Azithromycin [Zithromax Z-pack] 0 mg PO DIRECTED #6 tab Is patient prescribed a controlled substance at d/c from ED?: No Referrals: Bryce Abdi DO [Primary Care Provider] - 1-2 days Time of Disposition: 14:56
== END 2018-07-09 15:10 | disposition home or self-care (01) ==
LOC: EC 11:57
DX: R42 Dizziness and giddiness (principal); T50.995A Adverse effect of other drugs, medicaments and biological substances, initial encounter; J18.9 Pneumonia, unspecified organism; R91.8 Other nonspecific abnormal finding of lung field; I48.91 Unspecified atrial fibrillation; E11.9 Type 2 diabetes mellitus without complications; E78.5 Hyperlipidemia, unspecified; I10 Essential (primary) hypertension; N40.0 Benign prostatic hyperplasia without lower urinary tract symptoms; F17.200 Nicotine dependence, unspecified, uncomplicated; Z79.01 Long term (current) use of anticoagulants; Z79.84 Long term (current) use of oral hypoglycemic drugs; Z79.899 Other long term (current) drug therapy
CPT/HCPCS: 36415; 71046; 80053; 84484; 85025; 85610; 85730; 93005; 96360; 96361; 99284

== ENCOUNTER 2018-07-19 09:35 | Day surgery (SDC) | payer MEDICARE ==
[2018-07-13 11:36] VITALS: BMI 35.4
[~2018-07-19 09:35] MED LIST: ALPRAZolam 0.25 MG TAB PO PRN; ALPRAZolam 0.5 MG TAB PO PRN; ASPIRIN 325 MG TAB PO STA; ATORVASTATIN 80 MG TAB PO STA; NITROGLYCERIN SL TABS 0.4 MG TAB SUBLINGUAL PRN; SODIUM CHLORIDE 0.9% 1,000 ML in EMPTY BAG 1 BAG IV ONE
[2018-07-19 09:58] VITALS: TEMP 97.7
[2018-07-19 10:05] LABS: Glucose,Whole Blood 131 mg/dL (75-99)
[2018-07-19] MEDS ORDERED: fentaNYL (PF) 50 MCG/ML 2 ML AMP ONE (11:58)
[2018-07-19] MEDS ORDERED: fentaNYL (PF) 50 MCG/ML 2 ML AMP IV ONE (12:13)
[2018-07-19] MEDS ORDERED: LIDOCAINE 2% INJ 20 MG/ML SQ ONE (12:15)
[2018-07-19] MEDS ORDERED: MIDAZOLAM 2 MG/2 ML VIAL IVP ONE (12:17)
[2018-07-19] MEDS ORDERED: VERAPAMIL SYRINGE (5 MG/10 ML) INTRAARTER ONE (12:17)
[2018-07-19] MEDS ORDERED: HEPARIN SODIUM 1,000 UN/ML (10ML VL) IV ONE (12:25)
[2018-07-19] MEDS ORDERED: IOPAMIDOL-370 150ML BTL INJ ONE (12:29)
[2018-07-19] MEDS ORDERED: HYDROcodone/APAP 5-325MG 1 EACH TAB PO PRN (12:45)
[2018-07-19] MEDS ORDERED: RX INFO: IV CONTRAST WAS GIVEN 1 EACH MISC MISCELLANE PRN (12:45)
[2018-07-19] MEDS ORDERED: SODIUM CHLORIDE 0.9% 1,000 ML IV SCH (12:45)
--- NOTE | 2018-07-19 13:47 | US ---
EXAMINATION TYPE: US duplex aorta DATE OF EXAM: 07/19/2018 COMPARISON: NONE CLINICAL HISTORY: AAA; Noted during Cardiac catheterization today EXAM MEASUREMENTS: Abdominal Aorta: Proximal: 2.8cm Transverse Mid: 2.5cm A/P Distal: 5.2 x 5.5 x 5.8cm Bifurcation: limitedly seen; Right LENNY TR = 1.4cm; Left LENNY TR 2.1cm. Intimal wall thickening noted throughout abdominal aorta; LENNY limitedly seen due to wall calcificatio n. Color flow patency and PW Doppler are documented in distal aorta. IMPRESSION: 1. Infrarenal abdominal aortic aneurysm without complicating factor. Aneurysm left common iliac arter y.
--- NOTE | 2018-07-19 14:37 | CC ---
CARDIAC CATHETERIZATION REPORT Mr. Mendiola is a 77-year-old male with known history of hypertension, hyperlipidemia, diabetes mellitus, and a prior history of chronic tobacco use, who recently has been complaining of fatigue and was noted to be in atrial fibrillation and his echocardiogram revealed mild cardiomyopathy. In view of that, recommendation made regarding cardiac catheterization, the procedures, risks, and complications were discussed with the patient, who is in full understanding and agreement. PROCEDURE: Patient was brought to [facility] in a fasting semi-sedated state after receiving fentanyl and Benadryl and achieving moderate conscious sedated state. Using Xylocaine anesthesia and a Seldinger technique, a 6-C[place]ican sheath was introduced in the right radial artery. Selective right and left coronary angiography was performed using 5- [place], 3.5 bend right and left Kayleigh catheter. Multiple views of the coronary artery including having sutures obtained. Following that, a 5-[place]ican tight pigtail catheter was introduced in the left ventricle and a 30 degree DINH view of the left ventricle was obtained. Following that, catheter and sheath were removed. Hemostasis was obtained with deployment of a TR band. There was no immediate complication. Patient was returned to his room in stable condition. Of note, patient received 5000 units of intravenous heparin as well as intra-arterial verapamil. FINDINGS: FLUOROSCOPY: There is calcification involving all the coronary arteries. LEFT MAIN: This is a large-sized vessel, short in distance, bifurcating into left circumflex, left anterior descending artery, left main coronary artery has no evidence of high-grade stenosis. LEFT ANTERIOR DESCENDING ARTERY: This is a large-sized vessel, reaching toward the apex, tapers down distal third, giving rise to the distal third, giving rise to 2 diagonal branch. The second one is large in caliber. The left anterior descending artery throughout its course has diffuse intimal disease up to 30%-40% without any evidence of focal high-grade stenosis. LEFT CIRCUMFLEX: Tis is a nondominant vessel, large in caliber giving rise to 2 obtuse marginal branches. The first obtuse marginal branch has an area of stenosis of 40% to 50% with diffuse intimal disease in the proximal left circumflex. The rest of the vessel has no high-grade stenosis next right coronary artery this is a dominant large sized vessel bifurcating distally PDA posterolateral segment and branches. The right coronary artery in the proximal mid and distal segment has intimal disease of 20% to 30%. The PDA has an area of about 70% in the mid segment. The vessel beyond that is not very large in caliber. The rest of the vessel has no high-grade stenosis. LEFT VENTRICULOGRAM: Left ventriculogram was performed in 30 degree DINH view and revealed normal size with an ejection fraction of about 45%-50%/ There was no significant mitral regurgitation. There was an appearance of abdominal aortic aneurysm infrarenal. HEMODYNAMICS: There was no gradient across the aortic valve. The left ventricular end- diastolic pressure was 16-18 mmHg. CONCLUSION: 1. Calcified coronary arteries. 2. Mild to moderate triple-vessel coronary artery disease with moderate to significant disease in a mid right PDA. 3. Mildly impaired left ventricular systolic function with an appearance of abdominal aortic aneurysm. RECOMMENDATION: At this time, I will maximize his medical therapy and I will proceed to obtain abdominal aortic ultrasound to evaluate his aneurysm and depending on his progress, recommendation will be made regarding attempt to restore sinus mechanism. Those findings and recommendation were discussed with the patient and his family and they are in full understanding and agreement. Duration of procedure is 20 minutes. MMODL / IJN: [id number] / BLAS
[2018-07-19 15:05] VITALS: BP 120/62; PULSE 60; RESP 18
[2018-07-19] MEDS ORDERED: LISINOPRIL-HCTZ 20-12.5 MG 1 EACH TAB PO SCH (21:00)
[2018-07-20] MEDS ORDERED: amLODIPine 5 MG TAB PO SCH (09:00)
[2018-07-20] MEDS ORDERED: NON-FORMULARY DRUG (Simvastatin [Zocor] 20 MG) PO SCH (09:00)
[2018-07-20] MEDS ORDERED: TAMSULOSIN 0.4 MG CAP.ER.24H PO SCH (09:00)
== END 2018-07-19 17:16 | disposition home or self-care (01) ==
LOC: CATHCVL 09:35
PROVIDERS: ATTEND Internal Medicine Interventional Cardiology
DX: I25.10 Atherosclerotic heart disease of native coronary artery without angina pectoris (principal); I42.9 Cardiomyopathy, unspecified; I48.1 Persistent atrial fibrillation; I10 Essential (primary) hypertension; E78.2 Mixed hyperlipidemia; E11.9 Type 2 diabetes mellitus without complications; I72.3 Aneurysm of iliac artery; Z79.01 Long term (current) use of anticoagulants; Z79.84 Long term (current) use of oral hypoglycemic drugs; Z79.899 Other long term (current) drug therapy; Z82.49 Family history of ischemic heart disease and other diseases of the circulatory system; I71.4 Abdominal aortic aneurysm, without rupture; Z87.891 Personal history of nicotine dependence
CPT/HCPCS: 93458; 93979; C1769 ×2; C1894; J2001; J2250; J3010; J1644; Q9967

== ENCOUNTER 2018-08-03 06:25 | Day surgery (SDC) | payer MEDICARE ==
[2018-07-31 15:46] VITALS: BMI 33.0
[2018-08-03] MEDS ORDERED: HYDROmorphone 0.5 MG/0.5 ML SYRINGE IVP PRN (06:29)
[2018-08-03] MEDS ORDERED: LACTATED RINGERS 1,000 ML IV SCH (06:29)
[2018-08-03] MEDS ORDERED: MIDAZOLAM (PF) 2 MG/2 ML VIAL IV PRN (06:29)
[2018-08-03] MEDS ORDERED: SODIUM CHLORIDE 0.9% 1,000 ML IV SCH ×2 (06:29→07:45)
[2018-08-03 07:10] LABS: Glucose,Whole Blood 128 mg/dL (75-99)
[2018-08-03] MEDS ORDERED: LIDOCAINE 1% INJ 10MG/ML (20 ML MDV) ONE (07:13)
[2018-08-03] MEDS ORDERED: PROPOFOL 10 MG/ML 20 ML VIAL IV ONE (07:13)
[2018-08-03] MEDS: BENZOCAINE SPRAY 1 CAN MUCOUS MEM ONE ×2 (07:21→07:25)
[2018-08-03] MEDS ORDERED: IV FLUID CONTINUATION 1,000 ML IV ONE (07:22)
[2018-08-03 07:53] VITALS: TEMP 97.1
[2018-08-03 08:32] VITALS: RESP 18
[2018-08-03] MEDS ORDERED: RIVAROXABAN 20 MG TAB PO SCH (09:00)
[2018-08-03] MEDS ORDERED: TAMSULOSIN 0.4 MG CAP.ER.24H PO SCH (09:00)
[2018-08-03] MEDS ORDERED: LISINOPRIL-HCTZ 20-12.5 MG 1 EACH TAB PO SCH (09:00)
[2018-08-03] MEDS ORDERED: NON-FORMULARY DRUG (Simvastatin [Zocor] 20 MG) PO SCH (09:00)
[2018-08-03] MEDS ORDERED: NON-FORMULARY DRUG (Metformin Hcl [Metformin Hcl] 1,000 MG) PO SCH (09:00)
[2018-08-03] MEDS ORDERED: amLODIPine 5 MG TAB PO SCH (09:00)
--- NOTE | 2018-08-03 09:02 | CE ---
CARDIAC ELECTROPHYSIOLOGY REPORT CARDIOVERSION INDICATION: Atrial fibrillation. PROCEDURE: After explaining the procedure to the patient, its risks and the complications, after obtaining sedated state by the anesthesia department and performing transesophageal echocardiogram, a synchronized biphasic cardioversion using 200 joules was performed. There was no immediate complication. MICHELLE / RUDDY: [id number] /
[2018-08-03 09:07] VITALS: BP 171/89; PULSE 52
--- NOTE | 2018-08-03 09:41 | ECHOT ---
TRANSESOPHAGEAL ECHOCARDIOGRAM INDICATION: Atrial fibrillation. PROCEDURE: After explaining the procedure to the patient, its risks and complications, his blood pressure, heart rate, O2 saturation was monitored. The throat was sprayed with Cetacaine. He received sedation per Anesthesia Department. The probe was introduced in the esophagus without difficulty. Images were obtained. The probe was removed. There was no immediate complication. FINDINGS: Right atrial size is dilated. Left atrial appendage is normal. Left ventricular size is normal. There is mild global hypokinesis. Estimated ejection fraction 45% to 50%. The aortic valve revealed fibrocalcific change with aortic cusp with preserved opening. Thickening of the mitral valve leaflets was noted. The tricuspid valve is normal. Descending thoracic aorta revealed mild to moderate atherosclerotic changes. No pericardial effusion was noted. Contrast bubble study revealed no evidence of shunting across the interatrial septum. Doppler pulse wave and color Doppler obtained revealed moderate mitral with mild tricuspid regurgitation. There was no shunting by color Doppler study. CONCLUSION: 1. Biatrial enlargement with normal appearance left atrial appendage. 2. Normal left ventricular size with mild global hypokinesis. 3. Aortic sclerosis with no evident stenosis. 4. Moderate mitral with mild tricuspid regurgitation. 5. No shunting across the interatrial septum. 6. Mild to moderate atherosclerotic changes of the descending thoracic aorta. 7. No pericardial effusion. MMODL / IJN: [id number] /
== END 2018-08-03 09:07 | disposition home or self-care (01) ==
LOC: CATHCVL 06:25
PROVIDERS: ATTEND Internal Medicine Interventional Cardiology
DX: I48.1 Persistent atrial fibrillation (principal); I71.4 Abdominal aortic aneurysm, without rupture; I70.0 Atherosclerosis of aorta; I25.10 Atherosclerotic heart disease of native coronary artery without angina pectoris; I10 Essential (primary) hypertension; I08.1 Rheumatic disorders of both mitral and tricuspid valves; I42.9 Cardiomyopathy, unspecified; E11.9 Type 2 diabetes mellitus without complications; E78.5 Hyperlipidemia, unspecified; Z79.01 Long term (current) use of anticoagulants; Z79.84 Long term (current) use of oral hypoglycemic drugs; Z79.899 Other long term (current) drug therapy; Z87.891 Personal history of nicotine dependence; Z82.49 Family history of ischemic heart disease and other diseases of the circulatory system
CPT/HCPCS: 93312; 93320; 93325; 92960; J2001; J2704

== ENCOUNTER → 2018-08-07 | Outpatient (CLI) | payer MEDICARE ==
--- NOTE | 2018-08-07 10:53 | XR ---
EXAMINATION TYPE: XR chest 2V DATE OF EXAM: 08/07/2018 COMPARISON: 07/09/2018 INDICATION: Pneumonia, previous right lung density TECHNIQUE: Frontal and lateral views of the chest are obtained. FINDINGS: The heart size is normal. The pulmonary vasculature is normal. The lungs are clear. No suspicious consolidations are evident. Previous density within the right mid lung has resolved. IMPRESSION: 1. No acute pulmonary process.
== END ==
LOC: RADXRMAIN 10:07
PROVIDERS: ATTEND Family Medicine
DX: J15.9 Unspecified bacterial pneumonia (principal)
CPT/HCPCS: 71046

== ENCOUNTER → 2018-08-16 | Outpatient (CLI) | payer MEDICARE ==
--- NOTE | 2018-08-16 09:25 | CT ---
EXAMINATION TYPE: CT angio abdomen pelvis DATE OF EXAM: 08/16/2018 8:54 AM COMPARISON: Ultrasound dated 07/19/2018 HISTORY: Known abdominal aortic aneurysm without rupture. CT DLP: 1506.2 mGycm Automated exposure control for dose reduction was used. TECHNIQUE: Standard CTA of the abdomen and pelvis was performed without and with IV Contrast, patient injected w ith 100 mL of Isovue 370. FINDINGS: There is an infrarenal abdominal aortic aneurysm measuring up to 5.7 x 5.9 x 5.8 cm. This is saccular terminating just prior to the aortoiliac bifurcation. There is extensive circumferential atheroscler osis with the enhanced central lumen measuring only 2.4 x 2.2 cm. There is mild aneurysmal dilatation of the right common iliac artery measuring 2.3 cm. The left external iliac artery measures 1.5 cm an d is within normal limits. Extensive calcific atheromatous changes are also seen of the abdominal aor ta and its branches. The abdominal aortic aneurysm begins approximately 5.2 cm inferior to the left r enal artery. There are yu renal arteries. The celiac axis demonstrates approximately 50% multifocal stenosis with patency of the visualized por tions of the branches. The superior mesenteric artery demonstrates no ostial stenosis. The renal ignacia tonya appear patent. The inferior mesenteric artery also appears patent proximally with branches dimin utive and not well seen. Prostate gland is heterogenous containing central zone calcifications. Urinary bladder displays circu mferential wall thickening however this is nondistended and wall thickening is likely related to the nondistention. Numerous colonic diverticula without pericolonic fat stranding are seen throughout predominating with in the sigmoid colon. There is a mild amount of retained colonic stool. No dilated large or small bow el. Appendix is air-filled and within normal limits. There is a very small fat filled periumbilical h ernia. There are multiple nonenhancing right renal cysts the largest measuring up to 7.6 cm diving into the renal sinus without calyceal dilation. There are other right-sided too small to accurately characteri ze renal lesions. No nephrolithiasis on the unenhanced images. Renal arterial calcifications are seen . Angiographic phase of contrast limits evaluation of the solid viscera however no gross evidence of hepatic mass is seen. Gallbladder is unremarkable without cholelithiasis that is radiopaque and CT. T he adrenal glands demonstrate very mild thickening of the left suggesting adrenal gland hyperplasia. No measurable nodule is present. The spleen and pancreas are unremarkable. Focal sclerosis is seen of the right sacrum at the inferior anterior sacroiliac joint. This may be on the basis of degenerative change or related to a bone island. There is very mild grade 1 anterolisth esis of L4 on L5 likely due to hypertrophic facet changes. There is some sclerosis of the L4 and L5 p edicles and facets although this could be on the basis of degenerative change. Moderate degenerative changes of the lumbosacral spine and femoral acetabular joints are present. Multifocal osseous sclero sis is marked on the coronal series 9. IMPRESSION: 1. SACCULAR INFRARENAL ABDOMINAL AORTIC ANEURYSM MEASURING UP TO 5.7 X 5.9 X 5.8 CM WITH SEVERE CIRCU MFERENTIAL NONCALCIFIC MURAL PLAQUING IN ADDITION TO SEVERE PERIPHERAL ATHEROSCLEROSIS. 2. SCLEROSIS OF THE PEDICLES AND FACETS OF L4-L5 AND SCLEROTIC LESION OF THE RIGHT HEMISACRUM. ALTHOU GH FINDINGS MAY BE ON A DEGENERATIVE BASIS CORRELATION WITH PSA IS RECOMMENDED TO DETERMINE THE NEED FOR BONE SCAN SCLEROTIC METASTASIS IS POSSIBLE.
== END | disposition home or self-care (01) ==
LOC: RADCTMAIN 07:30
PROVIDERS: ATTEND Surgery
DX: I71.4 Abdominal aortic aneurysm, without rupture (principal); I70.0 Atherosclerosis of aorta
CPT/HCPCS: 82565; 84520; 36415; 74174; Q9967

== ENCOUNTER → 2018-09-03 | Outpatient (CLI) | payer MEDICARE ==
[2018-09-03 08:25] LABS: Appearance,Urine Clear (Clear); Bilirubin,Urine Negative (Negative); Blood,Urine Negative (Negative); Color,Urine Yellow; Glucose,Urine (UA) Negative (Negative); Ketones,Urine Negative (Negative); Leukocyte Esterase,Urine Negative (Negative); Nitrite,Urine Negative (Negative); Protein,Urine Negative (Negative); Specific Gravity,Urine 1.022 (1.001-1.035); Urobilinogen,Urine <2.0 mg/dL (<2.0)
[2018-09-03 08:29] LABS: Potassium 3.8 mmol/L (3.5-5.1)
[2018-09-03 09:04] LABS: Basophils # (A) 0.1 k/uL (0-0.2); Basophils % (A) 1 %; Eosinophils # (A) 0.4 k/uL (0-0.7); Eosinophils % (A) 4 %; HCT 47.2 % (39.0-53.0); HGB 15.5 gm/dL (13.0-17.5); Lymphocytes # (A) 1.7 k/uL (1.0-4.8); Lymphocytes % (A) 17 %; MCH 28.5 pg (25.0-35.0); MCV 86.3 fL (80.0-100.0); Mean Platelet Volume 7.1; Monocytes # (A) 0.7 k/uL (0-1.0); Monocytes % (A) 7 %; Neutrophils # (A) 6.8 k/uL (1.3-7.7); Neutrophils % (A) 70 %; Platelet Count 166 k/uL (150-450); RBC 5.46 m/uL (4.30-5.90); RDW 14.4 % (11.5-15.5); WBC 9.8 k/uL (3.8-10.6)
== END ==
LOC: LABPAT 07:36
PROVIDERS: ATTEND Surgery
DX: Z01.812 Encounter for preprocedural laboratory examination (principal); I71.4 Abdominal aortic aneurysm, without rupture
CPT/HCPCS: 80051; 81003; 82565; 84520; 85025

== ENCOUNTER → 2018-09-07 | Outpatient (CLI) | payer MEDICARE ==
--- NOTE | 2018-09-07 15:46 | NM ---
EXAMINATION TYPE: NM bone scan whole body DATE OF EXAM: 09/07/2018 COMPARISON: CT 08/16/2018 HISTORY: Z 12.89 Delayed whole-body scanning was performed following the injection of 23.3 mCi Tc 99m MDP. Images acq uired 3 hours post injection. FINDINGS: Soft tissue uptake is normal. There is uptake within the ankles, feet, knees, shoulders, sternoclavic ular joints, wrists and hips which is likely degenerative. Uptake in the lumbar spine likely is due t o degenerative disc disease. No areas of increased or decreased radio pharmaceutical uptake to sugges t metastatic disease. Uptake in the maxilla on the left likely due to periodontal disease. No increased uptake identified within the right sacrum at the level of the corresponding sclerotic fo cus on CT IMPRESSION: Osteoarthritis and degenerative disc disease
== END | disposition home or self-care (01) ==
LOC: RADNMMAIN 10:50
PROVIDERS: ATTEND Family Medicine
DX: Z03.89 Encounter for observation for other suspected diseases and conditions ruled out (principal); M51.36 Other intervertebral disc degeneration, lumbar region; M19.90 Unspecified osteoarthritis, unspecified site
CPT/HCPCS: 78306; A9503

== ENCOUNTER 2018-09-11 09:20 | Inpatient (IN) | payer MEDICARE ==
[2018-09-06 09:33] VITALS: BMI 30.9
[~2018-09-11 09:20] MED LIST changes: -ALPRAZolam 0.25 MG TAB PO PRN; -ALPRAZolam 0.5 MG TAB PO PRN; -ASPIRIN 325 MG TAB PO STA; -ATORVASTATIN 80 MG TAB PO STA; -NITROGLYCERIN SL TABS 0.4 MG TAB SUBLINGUAL PRN; +ceFAZolin IN SWFI 2 GM/20 ML SYRINGE IVP ONE
[2018-09-11 10:08] LABS: Glucose,Whole Blood 135 mg/dL (75-99)
[2018-09-11 10:34] LABS: Calcium 8.9 mg/dL (8.4-10.2); Potassium 3.9 mmol/L (3.5-5.1)
[2018-09-11 10:45] LABS: Basophils # (A) 0.1 k/uL (0-0.2); Basophils % (A) 1 %; Eosinophils # (A) 0.2 k/uL (0-0.7); Eosinophils % (A) 2 %; HCT 47.7 % (39.0-53.0); HGB 15.8 gm/dL (13.0-17.5); Lymphocytes # (A) 1.4 k/uL (1.0-4.8); Lymphocytes % (A) 17 %; MCHC 33.1 g/dL (31.0-37.0); MCV 84.6 fL (80.0-100.0); Mean Platelet Volume 7.4; Monocytes # (A) 0.5 k/uL (0-1.0); Monocytes % (A) 6 %; Neutrophils # (A) 6.2 k/uL (1.3-7.7); Neutrophils % (A) 73 %; Platelet Count 154 k/uL (150-450); RBC 5.64 m/uL (4.30-5.90); RDW 14.9 % (11.5-15.5); WBC 8.5 k/uL (3.8-10.6)
[2018-09-11] MEDS ORDERED: GLYCOPYRROLATE 0.2 MG/ML 2 ML VIAL ONE (11:56)
[2018-09-11] MEDS ORDERED: ONDANSETRON 4 MG/2 ML VIAL ONE (11:56)
[2018-09-11] MEDS ORDERED: ROCURONIUM BROMIDE 10 MG/ML 10 ML VIAL IV ONE (11:56)
[2018-09-11] MEDS ORDERED: ePHEDrine SULFATE/0.9% NACL/PF 50 MG/5 ML SYRINGE IV ONE (11:56)
[2018-09-11] MEDS ORDERED: fentaNYL (PF) 50 MCG/ML 2 ML AMP ONE (11:56)
[2018-09-11] MEDS ORDERED: NEOSTIGMINE 1 MG/ML 10 ML VIAL ONE (11:56)
[2018-09-11] MEDS ORDERED: PROTAMINE SULFATE 10 MG/ML 5 ML VIAL IV ONE (11:56)
[2018-09-11] MEDS ORDERED: HYDROmorphone (PF) 1 MG/ML ONE (11:56)
[2018-09-11] MEDS ORDERED: PROPOFOL 10 MG/ML 20 ML VIAL IV ONE (11:56)
[2018-09-11] MEDS ORDERED: PHENYLEPHRINE-0.9% NACL SYG 1 MG/10 ML SYRINGE ONE (11:56)
[2018-09-11] MEDS ORDERED: MIDAZOLAM 2 MG/2 ML VIAL ONE (11:56)
[2018-09-11] MEDS ORDERED: DEXAMETHASONE SOD PHOS (MDV) 100 MG/10 ML VIAL ONE (11:56)
[2018-09-11] MEDS ORDERED: LIDOCAINE 1% INJ 10MG/ML (20 ML MDV) ONE (11:56)
[2018-09-11] MEDS ORDERED: HEPARIN SODIUM,PORCINE 10,000 UNIT/ML 1 ML VIAL ONE (11:56)
[2018-09-11] MEDS ORDERED: SODIUM CHLORIDE 0.9% 1,000 ML IV ONE ×2 (13:30)
[2018-09-11] MEDS: SODIUM CHLORIDE 0.9% 1,000 ML IV ONE ×2 (13:30→15:51)
[2018-09-11] MEDS ORDERED: HYDROcodone/APAP 5-325MG 1 EACH TAB PO PRN (13:56)
--- NOTE | 2018-09-11 13:56 | P.OP ---
Date of Procedure: 09/11/18 Preoperative Diagnosis: Infrarenal 6cm AAA Postoperative Diagnosis: Same Procedure(s) Performed: Percutaneous Endovascular Aortic repair with Ovation iX device Ultrasound guided bilateral femoral artery access Perclose closure device placement x 4 Implants: Ovation 29mm main body Anesthesia: NISHANTA Surgeon: Andre Nicholas Estimated Blood Loss (ml): 50 IV fluids (ml): 1,000 Urine output (ml): 100 Pathology: none sent Condition: stable Disposition: PACU Indications for Procedure: 78-year-old gentleman presents to the hospital for elective AAA repair which has been increasing in size since his last visit in the office. Patient currently has a 6 cm aneurysm that is in need of surgical repair. He presents for elective endovascular aortic repair. Description of Procedure: After written informed consent was obtained the patient all risks benefits competitions were described the patient is brought to the [employer] suite and laid in a supine position. The area of the groins were prepped and draped in usual sterile fashion after appropriate anesthetic was performed per the anesthesiologist. A timeout was performed in normal fashion antibiotics were administered prior to accessed. Ultrasound was utilized and both common femoral arteries were visualized demonstrating patency without severe calcifications. Under ultrasound guidance both arteries were accessed and utilizing Seldinger technique a 6-Romanian sheath was placed followed by to pro guide closure device per femoral artery. Once completed 8-Romanian sheaths were then placed in both common femoral arteries the patient was administered heparin and followed with serial ACTs. An 035 Glidewire were then placed within the descending aorta followed by an angled glide catheter for the right and Glidewire was switched out for a stiff Lunderquist wire. Pigtail catheter was then placed on the left at the L2 vertebra level. Angled glide catheter was then removed as well as the 8-Romanian sheath and a 29 mm ovation Ix graft main body was then placed at the infrarenal neck. Angiogram was then obtained demonstrating good landing sites and main body was then deployed in normal fashion. Polymer was then infused under direct visualization of fluoroscopy after the pigtail catheter was withdrawn. Attention was then placed to the contralateral limb which was crossed. 035 Glidewire was then placed into the contralateral limb followed by pigtail catheter which was spun to verify gate cannulation. Measurements were then obtained for the contralateral limb via retrograde angiogram. A 18 x 140 mm contralateral ovation limb was then deployed in normal fashion after stiff Lunderquist wire was placed through the pigtail and the pigtail catheter was removed. Once completed a 12 x 40 mm balloon was then placed into the contralateral limb. After 14 minutes the main body was then completed deployment and nosecone was retracted and recaptured and removed. A Coda balloon was then placed and the main rings were angioplastied to allow for full molding into the aorta. Coda balloon was then removed and replaced with a pigtail catheter. Retrograde angiogram was then obtained and measurements were obtained for the ipsilateral limb. A 22 x 120 mm limb was then chosen and deployed in normal fashion. Once completed the deployment sheath was removed and a 12 x 40 mm balloon was then placed on the ipsilateral limb. Balloon angioplasties in a kissing fashion was then performed throughout the entirety of both limbs. Once completed pigtail catheter was then placed and final angiogram was obtained. Upon final aortogram there was no type I, III or IV endoleak. There was good approximation of the graft there was a small very late type II endoleak from a small lumbar that was noted. Once completed all guidewires and catheters were removed sheath was removed and Perclose closure devices were deployed in normal fashion with good hemostatic seal. The area was then cleansed and dressings were placed. Patient tolerated procedure well with palpable DP pulses. Patient did have episodes of A. fib with RVR which was being treated per anesthesia throughout the case.
[2018-09-11] MEDS ORDERED: IOPAMIDOL-300 100ML BTL INJ ONE ×2 (13:58)
[2018-09-11] MEDS: SODIUM CHLORIDE 0.9% 1,000 ML IV SCH ×2 (14:35→23:51)
[2018-09-11 14:37] LABS: Glucose,Whole Blood 125 mg/dL (75-99)
[2018-09-11 15:17] LABS: Glucose,Whole Blood 129 mg/dL (75-99)
[2018-09-11 16:17] LABS: Basophils % (A) 0 %; Eosinophils # (A) 0.1 k/uL (0-0.7); Eosinophils % (A) 1 %; HCT 43.3 % (39.0-53.0); HGB 14.4 gm/dL (13.0-17.5); Lymphocytes # (A) 0.8 k/uL (1.0-4.8); Lymphocytes % (A) 7 %; MCH 28.6 pg (25.0-35.0); MCHC 33.2 g/dL (31.0-37.0); MCV 86.2 fL (80.0-100.0); Mean Platelet Volume 7.1; Monocytes # (A) 0.3 k/uL (0-1.0); Monocytes % (A) 2 %; Neutrophils # (A) 10.3 k/uL (1.3-7.7); Neutrophils % (A) 89 %; Platelet Count 140 k/uL (150-450); RBC 5.02 m/uL (4.30-5.90); RDW 14.6 % (11.5-15.5); WBC 11.6 k/uL (3.8-10.6)
[2018-09-11 16:18] LABS: Potassium 4.1 mmol/L (3.5-5.1)
[2018-09-11 17:15] LABS: Glucose,Whole Blood 138 mg/dL (75-99)
[2018-09-11] MEDS: INSULIN ASPART (NovoLOG) 100 UNIT/ML VIAL SQ SCH ×2 (17:18→20:48)
--- NOTE | 2018-09-11 18:42 | CONS ---
CONSULTATION Mr. Mendiola is a 78-year-old male who underwent endovascular repair of his abdominal aortic aneurysm. He was evaluated in May of this year and at that time was found to have evidence of atrial fibrillation of unknown duration. He subsequently underwent cardiac catheterization in June and was found to have mild to moderate triple-vessel coronary artery disease. During that procedure he was found to have a large abdominal aortic aneurysm. His left ventricular systolic function was mildly impaired. He subsequently underwent a KAPIL guided cardioversion on August 03 with shinto of normal sinus rhythm, and the last time he was seen in the office he was in sinus mechanism. Today he underwent endovascular repair of abdominal aortic aneurysm, but at the beginning of the procedure he was found to be in atrial fibrillation. His ventricular response was controlled. He denies any chest pain. He denies any dizziness. He denies any knowledge of the irregular rhythm. He has been feeling better. Activity-green[place] he is feeling better. His coronary risk factors are remarkable for hyperlipidemia, hypertension, diabetes mellitus, and a prior history of smoking, which he stopped. MEDICATION: His medications at home included: 1. Metformin 1 gram daily. 2. Amlodipine 5 mg daily. 3. Tamsulosin. 4. Simvastatin 20 mg daily. 5. Xarelto 20 mg daily. 6. Lisinopril/HCT 20/12.5 mg daily. REVIEW OF SYSTEMS: RESPIRATORY SYSTEM: He has no recent wheezing or cough. His breathing has been stable. GI SYSTEM: No recent GI bleeding. No peptic ulcer disease. SYSTEM: No dysuria or hematuria. NERVOUS SYSTEM: No stroke or seizure. PHYSICAL EXAMINATION: He is a 78-year-old male, alert, oriented, in no apparent distress. Blood pressure is running in the 100s with a heart rate in the 50s to 60s. HEAD: Normocephalic. Eyes: Sclerae anicteric. NECK: Good carotid upstroke. No bruit. LUNGS: Clear to auscultation. HEART: Irregularly irregular. S1, S2. No S3, no rub, with a systolic murmur. ABDOMEN: Soft, nontender. Positive bowel sounds. No organomegaly. EXTREMITIES: No edema. LAB DATA: BUN and creatinine of 19 and 1.02, potassium 4.1, hemoglobin of 14.4. IMPRESSION: 1. Status post endovascular repair of his abdominal aortic aneurysm. 2. Atrial fibrillation, persistent, recurrent, following cardioversion. He was in sinus mechanism on his follow-up visit after the cardioversion in July. 3. Mild to moderate coronary artery disease. 4. Mild cardiomyopathy. 5. Hypertension. 6. Hyperlipidemia. 7. Prior history of smoking. 8. Diabetes mellitus. RECOMMENDATIONS: From the cardiac standpoint, at this time we will continue present therapy. The atrial fibrillation appears to be recurrent. Will follow his rhythm and rate and re-initiate treatment with the anticoagulation. Depending on his progress, further recommendations will be made. At this time his ventricular response is stable, and no negative chronotropic drugs will be needed. Thank you for this consult. Will follow with you. MMYEHUDAL / IJN: [id number] /
[2018-09-11 20:41] LABS: Glucose,Whole Blood 174 mg/dL (75-99)
--- NOTE | 2018-09-11 20:47 | P.CONS ---
History of Present Illness - Reason for Consult Consult date: 09/11/18 Medical management Requesting physician: Andre Nicholas - Chief Complaint Post AAA stent repair, A. fib, hypertension, hyperlipidemia and diabetes - History of Present Illness 78-year-old male one of Dr. Abdi patient with past medical history of A. fib, hypertension, diabetes, hyperlipidemia who was diagnosed with AAA in May 2018 after was admitted to the hospital for new onset of A. fib while his prepare for colonoscopy. Patient ended up seeing cardiology and abdominal ultrasound shows large abdominal aneurysm. Patient was referred to Dr. Nicholas and scheduled for elective stent to graft surgery. Procedure was done today successfully patient was admitted to the ICU afterward his hemodynamically stable. Medication were started patient is still in A. fib, blood sugar is well controlled so far patient has no complaint. Review of Systems CONSTITUTIONAL: Well-developed no acute respiratory distress. EYES: No icterus sclerae, no conjunctivitis. EARS, NOSE, MOUTH, THROAT, and FACE: No sore throat, lymphadenopathy, carotid bruits or deformity. RESPIRATORY: No SOB cough or wheezes. CARDIOVASCULAR: A. fib, PND and orthopnea. GASTROINTESTINAL: No Abd pain, Nausea or vomiting, no Diarrhea or constipation, No GI Bleed, no distention or masses. GENITOURINARY: mild BPH symptoms. INTEGUMENT/BREAST: Negative for any muscular injury with mild osteoarthritis.. HEMATOLOGIC/LYMPHATIC: Negative for bleed or purpura. MUSCULOSKELTAL: Negative for Myalgia or arthralgia. NEURLOGICAL: No LOC, Sz or syncope, blurred vision dizziness or abnormality.. BEHAVIORAL/PSYCH: Negative. ENDOCRINE: Negative. Past Medical History Past Medical History: Atrial Fibrillation, Diabetes Mellitus, Hyperlipidemia, Hypertension, Pneumonia, Prostate Disorder Additional Past Medical History / Comment(s): AAA. frequent urinartion History of Any Multi-Drug Resistant Organisms: None Reported Past Surgical History: Heart Catheterization Additional Past Surgical History / Comment(s): HEART CATH 07/09/18. KAPIL, Past Anesthesia/Blood Transfusion Reactions: No Reported Reaction Additional Past Anesthesia/Blood Transfusion Reaction / Comm: . Smoking Status: Former smoker - Past Family History Father Family Medical History: No Reported History Additional Family Medical History / Comment(s): Father was healthy and lived to be 97yrs old. Mother Additional Family Medical History / Comment(s): Mother had a pacemaker. She lived to be 86yrs old. Brother(s) Family Medical History: Cancer Additional Family Medical History / Comment(s): . Sister(s) Additional Family Medical History / Comment(s): Patient has 2 sisters. One at age 81 from heart failure. One sister in her 80s and resides at [facility] for dementia. Patient has one son with no major medical problems Medications and Allergies Home Medications Medication Instructions Recorded Confirmed Type Lisinopril-Hctz 20-12.5 mg 1 tab PO BID 06/05/18 09/11/18 History [Zestoretic 20-12.5] Simvastatin [Zocor] 20 mg PO DAILY 06/05/18 09/11/18 History Tamsulosin HCl [Flomax] 0.4 mg PO DAILY 06/05/18 09/11/18 History amLODIPine [Norvasc] 5 mg PO DAILY 06/05/18 09/11/18 History metFORMIN HCL 1,000 mg PO DAILY 06/05/18 09/11/18 History Rivaroxaban [Xarelto] 20 mg PO DAILY 07/09/18 09/11/18 History Allergies Allergy/AdvReac Type Severity Reaction Status Date / Time No Known Allergies Allergy Verified 09/11/18 13:57 Physical Exam Vitals: Vital Signs Temp Pulse Pulse Resp BP BP Pulse Ox 09/11/18 19:00 58 L 12 95 09/11/18 18:30 59 L 17 115/62 95 09/11/18 18:00 57 L 15 95 09/11/18 17:30 62 16 102/77 96 09/11/18 17:00 53 L 16 105/74 95 09/11/18 16:45 59 L 16 103/65 94 L 09/11/18 16:30 49 L 13 101/51 96 09/11/18 16:15 50 L 16 103/61 93 L 09/11/18 16:00 59 L 21 107/62 91 L 09/11/18 15:45 53 L 16 99/63 94 L 09/11/18 15:30 96.4 F L 56 L 20 100/61 96 09/11/18 15:15 59 L 19 88/58 94 L 09/11/18 14:39 77 16 103/57 94 L 09/11/18 14:24 74 18 106/56 94 L 09/11/18 14:09 97.7 F 81 12 109/61 96 Intake and Output 09/11/18 09/11/18 09/11/18 06:59 14:59 22:59 Intake Total 1100 760 Output Total 150 160 Balance 950 600 Intake: IV 1100 400 Sodium Chloride 0.9% 1, 400 000 ml @ 100 mls/hr IV . Q10H [facility] Rx#:[id number] Oral 360 Output: Urine 150 160 Other: Voiding Method Indwelling Catheter Weight 103 kg ABP, PAP, CO, CI - Last 8 Hours Arterial Blood Pressure 121/57 Arterial Blood Pressure 115/52 Arterial Blood Pressure 118/52 Arterial Blood Pressure 116/58 Arterial Blood Pressure 105/52 Arterial Blood Pressure 104/55 Arterial Blood Pressure 97/46 Arterial Blood Pressure 94/41 Arterial Blood Pressure 96/46 Arterial Blood Pressure 84/37 Arterial Blood Pressure 99/43 Arterial Blood Pressure 103/44 General Appearance: Alert, cooperative, no distress, appears stated age. Neck HEENT: Supple, no lymphadenopathy, no thyroid enlargement, no carotid bruits. Lungs: Clear to auscultation without crackles or wheezes no rhonchi, no deformity. Chest Wall: Chest wall normal expansion with deep inspiration no tenderness and no deformity was found on exam, no costochondral pain or discomfort. Heart: Irregular rate and rhythm, S1, S2, positive S3 no murmur, rub or gallop. Back: Symmetric, no curvature, ROM normal, no CVA tenderness. Abdomen: Soft, non-tender, bowel sounds active all four quadrants, no masses, no organomegaly. Extremities: Extremities normal, atraumatic, no cyanosis or edema. the groin and both side with small incision from his Pulses: 2+ and symmetric. Skin: Skin color, texture, tugor normal, no rashes or lesions. Neurologic: Alert oriented x3 cranial nerves II through XII intact, no motor deficit, no abnormal balance or gait. Results CBC & Chem 7: 09/11/18 15:49 09/11/18 15:49 Labs: Abnormal Lab Results - Last 24 Hours (Table) 09/11/18 09/11/18 09/11/18 Range/Units 09:50 09:52 14:33 WBC (3.8-10.6) k/uL Plt Count (150-450) k/uL Neutrophils # (1.3-7.7) k/uL Lymphocytes # (1.0-4.8) k/uL Chloride (98-107) mmol/L BUN 22 H (9-20) mg/dL Glucose 136 H (74-99) mg/dL POC Glucose (mg/dL) 135 H 125 H (75-99) mg/dL Calcium (8.4-10.2) mg/dL 09/11/18 09/11/18 09/11/18 Range/Units 15:15 15:49 15:49 WBC 11.6 H (3.8-10.6) k/uL Plt Count 140 L (150-450) k/uL Neutrophils # 10.3 H (1.3-7.7) k/uL Lymphocytes # 0.8 L (1.0-4.8) k/uL Chloride 109 H (98-107) mmol/L BUN (9-20) mg/dL Glucose 135 H (74-99) mg/dL POC Glucose (mg/dL) 129 H (75-99) mg/dL Calcium 8.0 L (8.4-10.2) mg/dL 09/11/18 Range/Units 17:14 WBC (3.8-10.6) k/uL Plt Count (150-450) k/uL Neutrophils # (1.3-7.7) k/uL Lymphocytes # (1.0-4.8) k/uL Chloride (98-107) mmol/L BUN (9-20) mg/dL Glucose (74-99) mg/dL POC Glucose (mg/dL) 138 H (75-99) mg/dL Calcium (8.4-10.2) mg/dL Assessment and Plan Plan: 1 post AAA stent graft repair: patient is doing well post surgery resume home meds, continue to watch patient hemodynamic status carefully. 2 A. fib with RVR : Patient has been doing well continue Xarelto pulse rates well controlled currently. 3 hypertension: Remain on amlodipine 5 mg a day , lisinopril HCT 20/12.5 mg twice a day. 3 type 2 diabetes: Has been on metformin 1000 g twice a day resume medication by tomorrow continue Accu-Chek with sliding scales coverage. 5 BPH: Patient would be watch for any urinary retention. 6 GI prophylaxis: Patient will be on Pepcid 20 mg daily. 7 DVT prophylaxis: Patient still on anticoagulation. CODE STATUS: Full code. Dr. Nicholas thank you very much for the consult if I can be any further help to please let me know.
[2018-09-11] MEDS: LISINOPRIL-HCTZ 20-12.5 MG 1 EACH TAB PO SCH (20:49)
[2018-09-12 03:40] LABS: Hemoglobin A1C 6.3 % (4.0-6.0)
[2018-09-12 04:48] LABS: Basophils % (A) 0 %; Eosinophils # (A) 0.2 k/uL (0-0.7); Eosinophils % (A) 1 %; HCT 43.5 % (39.0-53.0); HGB 14.4 gm/dL (13.0-17.5); Lymphocytes # (A) 0.6 k/uL (1.0-4.8); Lymphocytes % (A) 4 %; MCH 28.3 pg (25.0-35.0); MCHC 33.2 g/dL (31.0-37.0); MCV 85.5 fL (80.0-100.0); Mean Platelet Volume 7.4; Monocytes # (A) 0.4 k/uL (0-1.0); Monocytes % (A) 2 %; Neutrophils # (A) 16.8 k/uL (1.3-7.7); Neutrophils % (A) 93 %; Platelet Count 158 k/uL (150-450); RBC 5.09 m/uL (4.30-5.90); RDW 14.1 % (11.5-15.5); WBC 18.1 k/uL (3.8-10.6)
[2018-09-12 04:59] LABS: Anion Gap 5 mmol/L; Blood Urea Nitrogen 20 mg/dL (9-20); Calcium 8.4 mg/dL (8.4-10.2); Carbon Dioxide 24 mmol/L (22-30); Chloride 105 mmol/L (98-107); Glucose 185 mg/dL (74-99); Magnesium 1.9 mg/dL (1.6-2.3); Potassium 4.2 mmol/L (3.5-5.1); Sodium 134 mmol/L (137-145)
[2018-09-12 06:52] LABS: Glucose,Whole Blood 166 mg/dL (75-99)
[2018-09-12] MEDS: INSULIN ASPART (NovoLOG) 100 UNIT/ML VIAL SQ SCH ×2 (06:59→12:16)
--- NOTE | 2018-09-12 08:37 | PN ---
PROGRESS NOTE Mr. Mendiola is a 78-year-old male with a known history of mild to moderate coronary artery disease, history of mild cardiomyopathy as well as prior atrial fibrillation, who underwent cardioversion with episcopalian of normal sinus rhythm. He was found to have an abdominal aortic aneurysm, underwent endovascular repair yesterday. On presentation he was noted to be in atrial fibrillation and he continues to be in atrial fibrillation with controlled ventricular response. He is feeling well overall. He denies any symptoms of chest pain. He denies any dizziness or palpitation. He is unaware that he is back in atrial fibrillation. He continued be on aspirin once a day, Lipitor 10 mg daily, lisinopril HCT 20/12.5 mg twice a day, and Xarelto 20 mg daily. PHYSICAL EXAMINATION: Blood pressure is 139/90 with the heart rate in the 70s. LUNGS: Clear. HEART: Irregular, irregular. S1, S2. No S3. No rub. ABDOMEN: Soft, nontender. EXTREMITIES: No edema. LAB DATA: Lab data revealed BUN and creatinine 20 and 0.91, hemoglobin of 14.4. IMPRESSION: 1. Status post endovascular repair of abdominal aortic aneurysm. 2. Atrial fibrillation recurrent after cardioversion, asymptomatic. 3. Coronary artery disease, stable. 4. Mild cardiomyopathy. 5. Hyperlipidemia. RECOMMENDATION: From the cardiac standpoint, he is stable on the present regimen. We will continue present treatment and would expect he should be able to be discharged home soon and followed as an outpatient. MMYEHUDAL / IJN: [id number] /
[2018-09-12] MEDS ORDERED: ATORVASTATIN 10 MG TAB PO SCH (09:00)
[2018-09-12] MEDS ORDERED: TAMSULOSIN 0.4 MG CAP.ER.24H PO SCH (09:00)
[2018-09-12] MEDS ORDERED: ASPIRIN 81 MG PO SCH (09:00)
[2018-09-12] MEDS ORDERED: RIVAROXABAN 20 MG TAB PO SCH (09:00)
[2018-09-12] MEDS ORDERED: amLODIPine 5 MG TAB PO SCH (09:00)
[2018-09-12] MEDS: LISINOPRIL-HCTZ 20-12.5 MG 1 EACH TAB PO SCH (09:10)
[2018-09-12] MEDS: SODIUM CHLORIDE 0.9% 1,000 ML IV SCH (09:10)
--- NOTE | 2018-09-12 11:32 | IR ---
Fluoroscopy HISTORY: Aortic aneurysm 16.5 minutes fluoroscopy time supplied to the referring clinician. 278 intraoperative C-arm images d ocument the procedure. See dictated report from vascular surgery.
[2018-09-12 11:56] LABS: Glucose,Whole Blood 169 mg/dL (75-99)
[2018-09-12] MEDS ORDERED: amLODIPine 5 MG TAB PO STA (12:24)
[2018-09-12 12:27] VITALS: TEMP 97.7
[2018-09-12 14:15] VITALS: BP 149/98; PULSE 64; RESP 12
[2018-09-13] MEDS ORDERED: metFORMIN 500 MG TAB PO SCH (09:00)
[2018-09-13] MEDS ORDERED: amLODIPine 5 MG TAB PO SCH (09:00)
--- NOTE | 2018-09-14 13:44 | P.PN ---
Subjective Progress Note Date: 09/12/18 78-year-old male one of Dr. Abdi patient with past medical history of A. fib, hypertension, diabetes, hyperlipidemia who was diagnosed with AAA in May 2018 after was admitted to the hospital for new onset of A. fib while his prepare for colonoscopy. Patient ended up seeing cardiology and abdominal ultrasound shows large abdominal aneurysm. Patient was referred to Dr. Nicholas and scheduled for elective stent to graft surgery. Procedure was done today successfully patient was admitted to the ICU afterward his hemodynamically stable. Medication were started patient is still in A. fib, blood sugar is well controlled so far patient has no complaint. 09/12: Patient has been seen in the intensive care unit. He is scheduled for discharge home today. Blood pressure has been running high for which Norvasc was increased to twice daily. Patient will be resuming his metformin on Monday morning. Patient is being discharged home today in stable condition. Review of Systems CONSTITUTIONAL: Well-developed no acute respiratory distress. Denies fever, denies chills. EYES: No icterus sclerae, no conjunctivitis. EARS, NOSE, MOUTH, THROAT, and FACE: No sore throat, lymphadenopathy, carotid bruits or deformity. RESPIRATORY: No SOB cough or wheezes. CARDIOVASCULAR: A. fib, PND and orthopnea. GASTROINTESTINAL: No Abd pain, Nausea or vomiting, no Diarrhea or constipation, No GI Bleed, no distention or masses. GENITOURINARY: mild BPH symptoms. INTEGUMENT/BREAST: Negative for any muscular injury with mild osteoarthritis.. HEMATOLOGIC/LYMPHATIC: Negative for bleed or purpura. MUSCULOSKELTAL: Negative for Myalgia or arthralgia. NEURLOGICAL: No LOC, Sz or syncope, blurred vision dizziness or abnormality.. BEHAVIORAL/PSYCH: Negative. ENDOCRINE: Negative. Objective - Vital Signs Vital signs: Vital Signs Temp 97.8 F 09/12/18 08:00 Pulse 75 09/12/18 11:00 Resp 18 09/12/18 11:00 BP 157/82 09/12/18 11:00 Pulse Ox 94 L 09/12/18 11:00 Intake & Output 09/11/18 09/12/18 09/12/18 18:59 06:59 18:59 Intake Total 1640 1320 860 Output Total 265 605 400 Balance 1375 715 460 Weight 103 kg 105.1 kg Intake: IV 1400 1200 500 Sodium Chloride 0.9% 1, 300 1200 500 000 ml @ 100 mls/hr IV . Q10H [facility] Rx#:[id number] Oral 240 120 360 Output: Urine 265 605 400 Other: Voiding Method Indwelling Catheter Indwelling Catheter Urinal ABP, PAP, CO, CI - Last Documented Arterial Blood Pressure 135/57 - Exam General Appearance: Alert, cooperative, no distress, appears stated age. Patient is sitting on the edge of the bed. Neck HEENT: Supple, no lymphadenopathy, no thyroid enlargement, no carotid bruits. Lungs: Clear to auscultation without crackles or wheezes no rhonchi, no deformity. Chest Wall: Chest wall normal expansion with deep inspiration no tenderness and no deformity was found on exam, no costochondral pain or discomfort. Heart: Irregular rate and rhythm, S1, S2, positive S3 no murmur, rub or gallop. Back: Symmetric, no curvature, ROM normal, no CVA tenderness. Abdomen: Soft, non-tender, bowel sounds active all four quadrants, no masses, no organomegaly. Extremities: Extremities normal, atraumatic, no cyanosis or edema. the groin and both side with small incision Pulses: 2+ and symmetric. Skin: Skin color, texture, tugor normal, no rashes or lesions. Neurologic: Alert oriented x3 cranial nerves II through XII intact, no motor deficit, no abnormal balance or gait. - Labs CBC & Chem 7: 09/12/18 04:30 09/12/18 04:30 Labs: Abnormal Lab Results - Last 24 Hours (Table) 09/11/18 09/11/18 09/11/18 Range/Units 14:33 15:15 15:49 WBC 11.6 H (3.8-10.6) k/uL Plt Count 140 L (150-450) k/uL Neutrophils # 10.3 H (1.3-7.7) k/uL Lymphocytes # 0.8 L (1.0-4.8) k/uL Sodium (137-145) mmol/L Chloride (98-107) mmol/L Glucose (74-99) mg/dL POC Glucose (mg/dL) 125 H 129 H (75-99) mg/dL Hemoglobin A1c (4.0-6.0) % Calcium (8.4-10.2) mg/dL 09/11/18 09/11/18 09/11/18 Range/Units 15:49 16:04 17:14 WBC (3.8-10.6) k/uL Plt Count (150-450) k/uL Neutrophils # (1.3-7.7) k/uL Lymphocytes # (1.0-4.8) k/uL Sodium (137-145) mmol/L Chloride 109 H (98-107) mmol/L Glucose 135 H (74-99) mg/dL POC Glucose (mg/dL) 138 H (75-99) mg/dL Hemoglobin A1c 6.3 H (4.0-6.0) % Calcium 8.0 L (8.4-10.2) mg/dL 09/11/18 09/12/18 09/12/18 Range/Units 20:40 04:30 04:30 WBC 18.1 H (3.8-10.6) k/uL Plt Count (150-450) k/uL Neutrophils # 16.8 H (1.3-7.7) k/uL Lymphocytes # 0.6 L (1.0-4.8) k/uL Sodium 134 L (137-145) mmol/L Chloride (98-107) mmol/L Glucose 185 H (74-99) mg/dL POC Glucose (mg/dL) 174 H (75-99) mg/dL Hemoglobin A1c (4.0-6.0) % Calcium (8.4-10.2) mg/dL 09/12/18 09/12/18 Range/Units 06:51 11:54 WBC (3.8-10.6) k/uL Plt Count (150-450) k/uL Neutrophils # (1.3-7.7) k/uL Lymphocytes # (1.0-4.8) k/uL Sodium (137-145) mmol/L Chloride (98-107) mmol/L Glucose (74-99) mg/dL POC Glucose (mg/dL) 166 H 169 H (75-99) mg/dL Hemoglobin A1c (4.0-6.0) % Calcium (8.4-10.2) mg/dL Assessment and Plan Plan: 1 post AAA stent graft repair: patient is doing well post surgery resume home meds, continue to watch patient hemodynamic status carefully. 2 chronic atrial fibrillation: Continue Xarelto.. 3 hypertension: Remain on amlodipine 5 mg a day , lisinopril HCT 20/12.5 mg twice a day. 3 type 2 diabetes: Has been on metformin 1000 g twice a day resume medication by tomorrow continue Accu-Chek with sliding scales coverage. 5 BPH: Patient would be watch for any urinary retention. 6 GI prophylaxis: Patient will be on Pepcid 20 mg daily. 7 DVT prophylaxis: Patient still on anticoagulation. CODE STATUS: Full code. Dr. Nicholas thank you very much for the consult if I can be any further help to please let me know. Discharge plan: Home Impression and plan of care have been directed as dictated by the signing physician. Patty Hernadez nurse practitioner acting as scribe for signing physician.
--- NOTE | 2018-09-15 06:06 | P.DS ---
Providers Date of admission: 09/11/18 09:20 Expected date of discharge: 09/12/18 Attending physician: Andre Nicholas DO Consults: 09/10/18 09:32 Consult to Anesthesia Routine Consulting Provider: Anesthesia,Services Consult Reason/Comments: General anesthesia for Aortic Stent procedure 09/11/18 14:06 Consult Physician Routine Consulting Provider: Emely Pace Consult Reason/Comments: afib Do you want consulting provider notified?: Yes 09/11/18 15:38 Consult Physician Routine Consulting Provider: Arcadio Abrams Consult Reason/Comments: Medical management for Dr. Abdi Do you want consulting provider notified?: Yes Primary care physician: Bryce Abdi - Discharge Diagnosis(es) (1) Abdominal aortic aneurysm without rupture Status: Acute Priority: High Hospital Course: 78 year male with history of AAA presented for elective EVAR which was performed without complications. He did have some Afib with RVR during the procedure but this resolved shortly after. He was admitted to the ICU for monitoring, did well and HR normalized. He was cleared from medicine and cardiology the following day, was ambulating without difficulty and was discharged home. For all further details, refer to the chart. Procedures: EVAR Patient Condition at Discharge: Stable Plan - Discharge Summary Discharge Rx Participant: Yes New Discharge Prescriptions: New Aspirin 81 mg PO DAILY chew amLODIPine [Norvasc] 5 mg PO BID #60 tab Continue metFORMIN HCL 1,000 mg PO DAILY Simvastatin [Zocor] 20 mg PO DAILY Lisinopril-Hctz 20-12.5 mg [Zestoretic 20-12.5] 1 tab PO BID Tamsulosin HCl [Flomax] 0.4 mg PO DAILY Rivaroxaban [Xarelto] 20 mg PO DAILY Discontinued amLODIPine [Norvasc] 5 mg PO DAILY Discharge Medication List Lisinopril-Hctz 20-12.5 mg [Zestoretic 20-12.5] 1 tab PO BID 06/05/18 [History] Simvastatin [Zocor] 20 mg PO DAILY 06/05/18 [History] Tamsulosin HCl [Flomax] 0.4 mg PO DAILY 06/05/18 [History] metFORMIN HCL 1,000 mg PO DAILY 06/05/18 [History] Rivaroxaban [Xarelto] 20 mg PO DAILY 07/09/18 [History] Aspirin 81 mg PO DAILY chew 09/12/18 [Rx] amLODIPine [Norvasc] 5 mg PO BID #60 tab 09/12/18 [Rx] Follow up Appointment(s)/Referral(s): Emely Pace MD [STAFF PHYSICIAN] - 10/03/18 8:30 am Andre Nicholas DO [STAFF PHYSICIAN] - 09/25/18 1:15 pm Bryce Abdi DO [Primary Care Provider] - 1 Week Patient Instructions/Handouts: Endovascular Aneurysm Repair of Abdominal Aorta (DC) Activity/Diet/Wound Care/Special Instructions: Resume metformin on Monday morning. Discharge Disposition: HOME SELF-CARE
== END 2018-09-12 16:31 | disposition home or self-care (01) | DRG 269 ==
LOC: 2ORMAIN 09:20 → 2SICU 13:50
PROVIDERS: ADMIT Surgery; ATTEND Surgery
PROC: 04V03D6 (ICD-10-PCS; principal; 2018-09-12)
DX: I71.4 Abdominal aortic aneurysm, without rupture (principal); I48.1 Persistent atrial fibrillation; I42.9 Cardiomyopathy, unspecified; E11.9 Type 2 diabetes mellitus without complications; I25.10 Atherosclerotic heart disease of native coronary artery without angina pectoris; I10 Essential (primary) hypertension; E78.5 Hyperlipidemia, unspecified; N40.0 Benign prostatic hyperplasia without lower urinary tract symptoms; Z79.01 Long term (current) use of anticoagulants; Z79.84 Long term (current) use of oral hypoglycemic drugs; Z79.899 Other long term (current) drug therapy; Z87.891 Personal history of nicotine dependence; Z82.49 Family history of ischemic heart disease and other diseases of the circulatory system
CPT/HCPCS: 34705; 80048; 83036; 83735; 85025; 86850; 86900; 86901

== ENCOUNTER → 2018-11-05 | Outpatient (CLI) | payer MEDICARE ==
--- NOTE | 2018-11-05 15:53 | CT ---
EXAMINATION TYPE: CT angio abdomen pelvis DATE OF EXAM: 11/05/2018 COMPARISON: 08/16/2018 INDICATION: Abdominal aortic aneurysm without rupture, post stent DLP: 2618.1 mGycm, Automated exposure control for dose reduction was used. CONTRAST: 100 mL of Isovue 370. Study performed without Oral Contrast TECHNIQUE: Axial images were obtained from above the diaphragm to the pubic rami in the axial plane a t 5 mm thick sections. Reconstructed images are reviewed on the computer in the coronal plane. Thre e-D reconstructed images are performed by the technologist on a separate computer are reviewed on the PACS computer system FINDINGS: Limited CT sections are obtained the lung bases. The lung bases are clear. Coronary artery calcific ation is present CT ABDOMEN: Liver: Normal Spleen: Normal Pancreas: Normal Adrenal glands: The adrenal glands are normal. Gallbladder: Normal Kidneys: No masses are evident. No hydronephrosis is present. There are 2 cysts at the superior martinez e right kidney. The larger measures 7.1 cm and 7 Hounsfield units. The more superior posterior is a t ransverse dimension of 3.5 cm and measures 5 Hounsfield units. Delayed images were obtained through the kidneys, which remain unremarkable. Aorta: Vascular calcification is within the aorta. Aortic stent is present. No endovascular leak is evident. Inferior vena cava: Normal. CT PELVIS: Loops of bowel within the abdomen and pelvis are normal. Studies performed without oral contrast limiting bowel evaluation. Multiple diverticuli without evidence of acute diverticulitis within the s igmoid colon. Appendix: Normal as visualized. Urinary bladder: Urinary bladder wall thickening appears to be present. Genitourinary structures: The prostate is prominent contains calcification. Osseous structures: No suspicious lytic or sclerotic lesions. Is that degenerative changes are in the lower lumbar spine IMPRESSIONS: 1. No evidence of endovascular leak postcontrast. 2. Right renal cysts
== END | disposition home or self-care (01) ==
LOC: RADCTMAIN 08:00
PROVIDERS: ATTEND Surgery
DX: N28.1 Cyst of kidney, acquired (principal)
CPT/HCPCS: 82565; 84520; 36415; 74174; Q9967

== ENCOUNTER 2022-02-02 05:56 | Day surgery (SDC) | payer MEDICARE ==
[~2022-02-02 05:56] MED LIST changes: +ALPRAZolam 0.25 MG TAB PO PRN; +ALPRAZolam 0.5 MG TAB PO PRN; +NITROGLYCERIN SL TABS 0.4 MG TAB SUBLINGUAL PRN; -SODIUM CHLORIDE 0.9% 1,000 ML in EMPTY BAG 1 BAG IV ONE; +SODIUM CHLORIDE 0.9% 1,000 ML in EMPTY BAG 1 BAG IV SCH; -ceFAZolin IN SWFI 2 GM/20 ML SYRINGE IVP ONE
[2022-02-02] MEDS ORDERED: SODIUM CHLORIDE 0.9% 1,000 ML IV ONE (06:09)
[2022-02-02 06:36] LABS: Basophils # (A) 0.1 k/uL (0-0.2); Basophils % (A) 1 %; Eosinophils # (A) 0.3 k/uL (0-0.7); Eosinophils % (A) 2 %; HCT 51.6 % (39.0-53.0); HGB 17.3 gm/dL (13.0-17.5); Lymphocytes # (A) 1.9 k/uL (1.0-4.8); Lymphocytes % (A) 14 %; MCH 29.5 pg (25.0-35.0); MCHC 33.6 g/dL (31.0-37.0); MCV 87.9 fL (80.0-100.0); Monocytes # (A) 0.9 k/uL (0-1.0); Monocytes % (A) 6 %; Neutrophils # (A) 10.1 k/uL (1.3-7.7); Neutrophils % (A) 75 %; Platelet Count 187 k/uL (150-450); RBC 5.87 m/uL (4.30-5.90); RDW 13.2 % (11.5-15.5); WBC 13.5 k/uL (3.8-10.6)
[2022-02-02 06:37] VITALS: RESP 16; TEMP 98
[2022-02-02] MEDS ORDERED: ASPIRIN 325 MG TAB PO ONE (07:00)
[2022-02-02 07:05] LABS: Glucose,Whole Blood 134 mg/dL (70-110)
[2022-02-02] MEDS ORDERED: VERAPAMIL 2.5 MG/ML 2 ML AMP ONE (07:19)
[2022-02-02] MEDS ORDERED: fentaNYL (PF) 50 MCG/ML 2 ML AMP ONE (07:27)
[2022-02-02] MEDS ORDERED: fentaNYL (PF) 50 MCG/ML 2 ML AMP IV ONE (07:57)
[2022-02-02] MEDS ORDERED: HEPARIN SODIUM 1,000 UN/ML (10ML VL) ONE (07:59)
[2022-02-02] MEDS ORDERED: VERAPAMIL SYRINGE (5 MG/10 ML) INTRAARTER ONE (08:04)
[2022-02-02] MEDS ORDERED: LIDOCAINE 1% INJ 10MG/ML (30 ML VIAL-PF) SQ ONE (08:05)
[2022-02-02] MEDS ORDERED: HEPARIN SODIUM 1,000 UN/ML (10ML VL) IV ONE (08:06)
[2022-02-02] MEDS ORDERED: IOPAMIDOL-370 125ML BTL INJ ONE (08:16)
[2022-02-02] MEDS ORDERED: RX INFO: IV CONTRAST WAS GIVEN 1 EACH MISC MISCELLANE PRN (08:29)
[2022-02-02] MEDS ORDERED: SODIUM CHLORIDE 0.9% 1,000 ML IV SCH (08:30)
--- NOTE | 2022-02-02 08:38 | P.CARDCATH ---
Date of Procedure: 02/02/22 Description of Procedure: Cardiac Catheterization: The patient is a 81-year-old male with a known history of chronic persistent atrial fibrillation, status post aortic valve repair, hypertension, hyperlipidemia who had an abnormal MPI. Recommendations were made regarding cardiac catheterization, the risks and the complications were discussed with the patient who is in full understanding and agreement. Procedure Description: Patient was brought to quality assurance qa lab technician in fasting semi-sedated state after receiving Fentanyl and Benadryl achieiving moderate conscious sedated state. Using Xylocaine Anesthesia and Seldinger technique, a 6-Swedish sheath was introduced in the right radial artery . Subsequently, selective coronary angiography was performed using a 3.5-Swedish 5 bend Kayleigh catheter. Multiple views of the coronary artery including hemiaxial views were obtained. The left Kayleigh catheter was used to cross the aortic valve and LVEDP was calculated. Following that, catheter and sheath were removed. Hemostasis was obtained with deployment of TR band . There was no immediate complication. Patient was returned to room in stable condition. Of note, the patient received a total of 5000 units of intravenous heparin as well as intra-arterial verapamil. Findings: Fluoroscopy: Severe calcification of the left coronary system was noted Left main: This is a short sized vessel, bifurcating into LAD and left circumflex, left main has no high-grade stenosis LAD: This is a large vessel, reaching to the apex with a wraparound apex segment giving rise to 2 diagonal branch, the LAD has mild intimal disease of 30% in the midsegment, the second diagonal branch has a 50% plaque at the ostium Left circumflex: This is a nondominant vessel, giving rise to 2 obtuse marginal branch, the left circumflex has mild diffuse intimal disease of 30-40%, there is a 50% plaque at the ostium of the first obtuse marginal branch. RCA: This is a dominant vessel, bifurcating into PDA and PLV the right coronary artery in the mid and distal segment has diffuse intimal disease of 20-30%. He PDA has a 50% plaque in the midsegment, the PLV is an 80-90% stenosis in the midsegment, beyond that the vessel is smaller in caliber. Left Ventriculogram: Not performed Hemodynamics: There was no gradient across the aortic valve , LVEDP was 16-18 mmHg Conclusion: 1. Calcified left coronary system 2. Moderate disease in the ostium of the second diagonal branch and first OM 3. Significant disease in the mid PLV with no significant progression since 2019 4. Moderate disease in the RCA Recommendations: In view of the absence of significant progression since 2019 and the location of the PLV lesion I would recommend continuing medical therapy with aggressive coronary risks modifications including smoking cessation. The findings and the recommendations were discussed with the patient and the family and they were in full understanding and agreement. Duration of sedation is 17 minutes.
[2022-02-02] MEDS ORDERED: LISINOPRIL-HCTZ 20-12.5 MG 1 EACH TAB PO SCH (09:00)
[2022-02-02] MEDS ORDERED: ASPIRIN 81 MG PO SCH (09:00)
[2022-02-02] MEDS ORDERED: amLODIPine 5 MG TAB PO SCH (09:00)
[2022-02-02 12:47] VITALS: BP 134/71; PULSE 46
[2022-02-02] MEDS ORDERED: TAMSULOSIN 0.4 MG CAP.ER.24H PO SCH (21:00)
[2022-02-02] MEDS ORDERED: ATORVASTATIN 40 MG TAB PO SCH (21:00)
== END 2022-02-02 13:14 | disposition home or self-care (01) ==
LOC: CATHCVL 05:56
PROVIDERS: ATTEND Internal Medicine Interventional Cardiology
DX: I25.10 Atherosclerotic heart disease of native coronary artery without angina pectoris (principal); I25.84 Coronary atherosclerosis due to calcified coronary lesion; I10 Essential (primary) hypertension; R94.39 Abnormal result of other cardiovascular function study; I42.8 Other cardiomyopathies; E11.51 Type 2 diabetes mellitus with diabetic peripheral angiopathy without gangrene; I71.40 Abdominal aortic aneurysm, without rupture, unspecified; I48.19 Other persistent atrial fibrillation; E78.2 Mixed hyperlipidemia; F17.210 Nicotine dependence, cigarettes, uncomplicated; F17.220 Nicotine dependence, chewing tobacco, uncomplicated; Z79.82 Long term (current) use of aspirin; Z79.01 Long term (current) use of anticoagulants; Z91.048 Other nonmedicinal substance allergy status
CPT/HCPCS: 93458; 85025; C1769 ×2; C1894; J2001; J3010; J1644; Q9967